=== PATIENT | female | born 1975 | race Caucasian/White ===

== ENCOUNTER 2020-03-03 20:02 | Emergency (ER) | payer OTHER, SELFPAY ==
[2020-03-03 20:40] VITALS: BP 170/83; PULSE 79; RESP 16; TEMP 36.2; O2SAT 100; BMI 49.7
--- NOTE | 2020-03-03 22:10 | ED.ABDPAIN ---
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 She states she has not followed up with her primary care provider for further evaluation. She denies any past surgical history. Related Data Previous Rx's Medication Instructions Recorded omeprazole 40 mg PO DAILY 14 Days #14 cap 03/04/20 Allergies Allergy/AdvReac Type Severity Reaction Status Date / Time amoxicillin Allergy Unknown rash Unverified 10/12/19 00:00 No Known Allergies Allergy Unverified 02/03/20 19:14 [No Known Allergies*] Review of Systems Review of Systems pertinent positives and negatives as stated in HPI 10 point review systems is otherwise negative. Physical Exam Vital Signs: Vital Signs: Vital Signs Temp Pulse Resp BP Pulse Ox 03/04/20 00:20 68 16 156/83 H 98 03/03/20 23:25 98.7 F 72 18 138/72 98 03/03/20 20:40 97.1 F 79 16 170/83 H 100 Body Mass Index 49.7 VITAL SIGNS: Reviewed. GENERAL: Well developed, well nourished, in no acute distress. HEAD: Normocephalic/atraumatic, EYES: PERRLA, EOMI intact without pain, no nystagmus/pallor/icterus noted EARS: Ext canals without abnormality, TMs non-bulging and non-erythematous NOSE: Nares patent bilateral OROPHARYNX: no oral lesions noted, posterior pharynx clear and non-erythematous without noted tonsillar enlargement/erythema/exudates NECK: Supple, no adenopathy LUNGS: Normal breath sounds. No adventitious sounds or accessory muscle use. SpO2<100%> CARDIOVASCULAR: Regular rate and rhythm without noted murmurs, no JVD or lower extremity edema. ABDOMEN: Obese, Soft, non-tender, non-distended with bowel sounds. No rigidity. No guarding. No palpable masses or hernias noted MUSCULOSKELETAL: No tenderness, deformities, or effusions noted on gross inspection. EXTREMITIES: No cyanosis, clubbing or edema. SKIN: Inspection of the skin reveals no rashes, ulcerations, jaundice, pallor, or petechiae. NEUROLOGIC: Alert and oriented x 4. Strength and sensation to light touch were grossly intact Course Course Course Narrative: this is a 44-year-old female with history and clinical presentation most suggestive of possible GERD/gastritis and less likelihood of cholecystitis or pancreatitis. Patient received a GI cocktail with good resolution of symptoms on re-evaluation and on review of all lab work and imaging there is no evidence to suggest a cholecystitis or pancreatitis. All results and findings were discussed with patient at bedside and she was discharged to home with a prescription for an ant acid and strict instructions to follow-up with her primary care provider. MDM - Abdominal Pain Lab Data Result diagrams: 03/03/20 23:42 03/04/20 00:43 Labs: Lab Results 03/03/20 03/03/20 03/03/20 Range/Units 23:42 23:42 23:42 WBC 7.8 (4.8-10.8) X10*3/uL RBC 4.22 (4.20-5.50) X10*6/uL Hgb 12.8 (12.0-16.0) g/dl Hct 38.8 (37-47) % MCV 91.9 (80-98) fL MCH 30.3 (27.0-33.0) pg MCHC 33.0 (31.0-35.0) g/dl RDW 13.4 (11.0-16.0) % Plt Count 328 (160-400) X10*3/uL MPV 10.9 (9.4-12.3) fL Immature Gran % (Auto) 0.3 (0.0-0.4) % Neut % (Auto) 50.2 (45-73) % Lymph % (Auto) 41.1 H (20-40) % [place] % (Auto) 5.7 (2-11) % Eos % (Auto) 1.8 (0-4) % Baso % (Auto) 0.9 (0-2) % Lymph # (Auto) 3.2 (1.2-4.9) X10*3/uL [place] # (Auto) 0.4 (0.1-1.2) X10*3/uL Eos # (Auto) 0.1 (0.0-0.4) X10*3/uL Baso # (Auto) 0.1 (0.0-0.2) X10*3/uL Abs Immat Gran (auto) 0.02 (0.00-0.03) X10*3/uL Absolute Neuts (auto) 3.9 (2.0-8.3) X10*3/uL Absolute Nucleated RBC 0.000 (0.0-0.012) X10*3/uL Nucleated RBC % (auto) 0.0 (0.0-0.2) /100WBC Sodium Cancelled Potassium Cancelled Chloride Cancelled Carbon Dioxide Cancelled Anion Gap Cancelled BUN Cancelled Creatinine Cancelled Estim Creat Clear Calc Cancelled Estimated GFR Cancelled Random Glucose Cancelled Calcium Cancelled Total Bilirubin Cancelled AST Cancelled ALT Cancelled Alkaline Phosphatase Cancelled Total Protein Cancelled Albumin Cancelled Urine Color YELLOW Urine Appearance CLEAR Urine pH 7.5 (5.0-8.0) Ur Specific [place] 1.020 (1.005-1.025) Urine Protein NEG (NEG-TRACE) MG/DL Urine Glucose (UA) NEG (NEG) MG/DL Urine Ketones NEG (NEG) MG/DL Urine Blood NEG (NEG) Urine Nitrite NEG (NEG) Ur Leukocyte Esterase TRACE H (NEG) Urine RBC 0 (0) /HPF Urine WBC 1-4 (0-4) /HPF Ur Squamous Epith Cells 2+ /LPF Urine Bacteria NONE /LPF Urine Test NEGATIVE (NEGATIVE) 03/04/20 Range/Units 00:43 WBC (4.8-10.8) X10*3/uL RBC (4.20-5.50) X10*6/uL Hgb (12.0-16.0) g/dl Hct (37-47) % MCV (80-98) fL MCH (27.0-33.0) pg MCHC (31.0-35.0) g/dl RDW (11.0-16.0) % Plt Count (160-400) X10*3/uL MPV (9.4-12.3) fL Immature Gran % (Auto) (0.0-0.4) % Neut % (Auto) (45-73) % Lymph % (Auto) (20-40) % [place] % (Auto) (2-11) % Eos % (Auto) (0-4) % Baso % (Auto) (0-2) % Lymph # (Auto) (1.2-4.9) X10*3/uL [place] # (Auto) (0.1-1.2) X10*3/uL Eos # (Auto) (0.0-0.4) X10*3/uL Baso # (Auto) (0.0-0.2) X10*3/uL Abs Immat Gran (auto) (0.00-0.03) X10*3/uL Absolute Neuts (auto) (2.0-8.3) X10*3/uL Absolute Nucleated RBC (0.0-0.012) X10*3/uL Nucleated RBC % (auto) (0.0-0.2) /100WBC Sodium 137 Potassium 3.9 Chloride 102 Carbon Dioxide 30 H Anion Gap 9 L BUN 11 Creatinine 0.69 Estim Creat Clear Calc 105.4 Estimated GFR > 60 Random Glucose 100 Calcium 8.7 Total Bilirubin 0.4 AST 10 ALT 8 Alkaline Phosphatase 82 Total Protein 6.6 Albumin 4.0 Urine Color Urine Appearance Urine pH (5.0-8.0) Ur Specific [place] (1.005-1.025) Urine Protein (NEG-TRACE) MG/DL Urine Glucose (UA) (NEG) MG/DL Urine Ketones (NEG) MG/DL Urine Blood (NEG) Urine Nitrite (NEG) Ur Leukocyte Esterase (NEG) Urine RBC (0) /HPF Urine WBC (0-4) /HPF Ur Squamous Epith Cells /LPF Urine Bacteria /LPF Urine Test (NEGATIVE) ECG Data Attestation: I personally reviewed and interpreted this ECG as follows: Prior ECG tracings: available for review (07/01/2018) Interpretation: NSR, HR-75, no evidence of ischemia, MS/QRS/QTc within normal limits Discharge Plan Discharge Clinical Impression: Gastritis Qualifiers: Gastritis type: unspecified gastritis Chronicity: chronic Gastritis bleeding: without bleeding Qualified Code(s): K29.50 - Unspecified chronic gastritis without bleeding Patient Disposition: Home, Self-Care Instructions: Gastritis (ED), Diet for Stomach Ulcers and Gastritis (ED) Additional Instructions: 1. reanude todos los medicamentos caseros seg?n lo prescrito. El paciente y / o la keli reconocen que comprenden los resultados (seg?n corresponda), el diagn?stico, el plan de tratamiento, la necesidad de seguimiento y los s?ntomas que deber?an impulsar el regreso a la humberto de emergencias. Prescriptions: New omeprazole 40 mg capsule,delayed release(DR/EC) 40 mg PO DAILY 14 Days Qty: 14 RF: 0 Referrals: Ree Gray MD [Primary Care Provider] - 2 days (For further management of your gastritis and evaluation for possible GERD) Interventions: ED Discharge Assessment Last Done: 03/04/20 01:30 Print Language: [place] [facility] Past Medical History Source: nursing notes reviewed Medical History Hearing loss Social History Social History Alcohol intake: never Smoking Status: Never smoker Use of substances other than those prescribed or required for medical reasons: No Advance Directives: No Advance Directives Information Provided: Yes
--- NOTE | 2020-03-03 22:11 | ECG_ITS ---
Test Reason : ABDOMINAL PAIN Blood Pressure : / mmHG Vent. Rate : 075 BPM Atrial Rate : 075 BPM P-R Int : 144 ms QRS Dur : 080 ms QT Int : 394 ms P-R-T Axes : 031 017 012 degrees QTc Int : 439 ms Normal sinus rhythm Normal ECG When compared with ECG of 01-JUL-2018 09:01, No significant change was found Referred By: Elizabeth Lomeli Electronically Signed By:DA LYNNE MD
--- NOTE | 2020-03-03 22:11 | XR_ITS ---
EXAMINATION: XR CHEST CLINICAL INFORMATION: Cough COMPARISON: 09/30/2019 TECHNIQUE: 2 views of the chest were obtained. FINDINGS: Hazy opacity in the posterior costophrenic sulcus on the lateral view is likely atelectasis. No focal consolidation or mass. Normal pulmonary vascularity. No pleural effusion or pneumothorax. Normal heart size. Degenerative changes of the thoracic spine. IMPRESSION: Atelectasis. No acute pulmonary disease.
--- NOTE | 2020-03-03 22:38 | US_ITS ---
EXAMINATION: US ABDOMEN LIMITED CLINICAL INFORMATION: Abdominal pain. COMPARISON: CT scan abdomen pelvis 07/01/2018 TECHNIQUE: Real-time imaging of the right upper quadrant abdominal viscera. Color Doppler exam used. FINDINGS: PANCREAS: Normal. LIVER: Normal. The liver is normal in size. The liver contour is normal. Parenchymal echogenicity is normal. No focal hepatic lesion. There is no intrahepatic biliary duct dilatation seen. GALLBLADDER: Gallstones fill the gallbladder causing strong posterior acoustic shadowing. No gallbladder wall thickening or pericholecystic fluid COMMON BILE DUCT: Normal in caliber measuring 0.3 cm in diameter. RIGHT KIDNEY: Normal. No hydronephrosis. No renal calculi or focal parenchymal lesions. The kidney measures 11.0 cm in maximum dimension. FREE FLUID: None. IMPRESSION: Cholelithiasis. No acute change of gallbladder wall. No bile duct dilatation.
[2020-03-03 23:25] VITALS: BP 138/72; PULSE 72; RESP 18; TEMP 37.1; O2SAT 98
[2020-03-03] MEDS: Acetaminophen 325 MG TABLET 975 MG PO (23:45)
[2020-03-03] MEDS: Magnesium Hydrox/Alum Hydrox 30 ML ORAL.SUSP PO (23:46)
[2020-03-03] MEDS: Lidocaine HCl Viscous 2 % 15 ML SOLUTION 10 ML MUCOUS MEM (23:46)
[2020-03-03 23:49] LABS: MANUAL DIFF FLAG NO
[2020-03-03 23:50] LABS: Basophils Absolute Auto 0.1 X10*3/uL (0.0-0.2); Basophils Percent Auto 0.9 % (0-2); Eosinophils Absolute Auto 0.1 X10*3/uL (0.0-0.4); Eosinophils Percent Auto 1.8 % (0-4); Hematocrit 38.8 % (37-47); Hemoglobin 12.8 g/dl (12.0-16.0); Imm Gran Abs Auto 0.02 X10*3/uL (0.00-0.03); Imm Gran Pct Auto 0.3 % (0.0-0.4); Lymphocytes Absolute Auto 3.2 X10*3/uL (1.2-4.9); Lymphocytes Percent Auto 41.1 % (20-40); Mean Corpuscular Hemoglobin 30.3 pg (27.0-33.0); Mean Corpuscular Volume 91.9 fL (80-98); Mean Platelet Volume 10.9 fL (9.4-12.3); Monocytes Absolute Auto 0.4 X10*3/uL (0.1-1.2); Monocytes Percent Auto 5.7 % (2-11); Neutrophils Absolute Auto 3.9 X10*3/uL (2.0-8.3); Neutrophils Percent Auto 50.2 % (45-73); Platelet Count 328 X10*3/uL (160-400); Red Blood Count 4.22 X10*6/uL (4.20-5.50); Red Cell Distribution Width 13.4 % (11.0-16.0); White Blood Count 7.8 X10*3/uL (4.8-10.8)
[2020-03-03 23:58] LABS: Glucose Urine UA NEG (NEG); Leukocyte Esterase Urine TRACE (NEG); Nitrite Urine NEG (NEG); PH 7.5 (5.0-8.0); Urine Blood NEG (NEG); Urine Ketones NEG (NEG); Urine Protein NEG (NEG-TRACE)
[2020-03-04 00:02] LABS: Appearance Urine CLEAR; Color Urine YELLOW
[2020-03-04 00:09] LABS: UPreg QC Valid YES; Urine Pregnancy NEGATIVE (NEGATIVE)
--- NOTE | 2020-03-04 00:16 | PC.NURSE ---
lab called and bed 17 needs to have the chem redrawn
[2020-03-04 00:20] VITALS: BP 156/83; PULSE 68; RESP 16; O2SAT 98
[2020-03-04 00:21] LABS: RBC Urine 0 /HPF (0); Squamous Epithelial Cell Urine 2+ /LPF
[2020-03-04 01:29] LABS: Alanine Aminotransferase 8 U/L (0-31); Alkaline Phosphatase 82 U/L (39-117); Anion Gap 9 (12-20); Aspartate Amino Transferase 10 U/L (5-31); Bilirubin Total 0.4 mg/dL (0.0-1.0); Blood Urea Nitrogen 11 mg/dL (9-16); Calcium 8.7 mg/dL (8.4-10.2); Carbon Dioxide 30 mmol/L (22-29); Chloride 102 mmol/L (96-108); Creatinine Clr Calc Pharmacy 105.4; Estimated Glomerular Filt Rate > 60; Glucose Random 100 mg/dL (60-115); Potassium 3.9 mmol/l (3.3-5.1); Sodium 137 mmol/L (135-145); Total Protein 6.6 g/dL (6.5-8.0)
--- NOTE | 2020-03-04 01:37 | PC.NURSE ---
Pt is A&O, no sob or chest pain. pt able to ambulated with a steady gait. Review discharge instructions with pt, pt verbalized understanding.
== END 2020-03-04 01:36 | disposition home or self-care (01) ==
PROVIDERS: Emergency Provider Student in an Organized Health Care Education/Training Program; PCP Internal Medicine
DX: K29.50 Unspecified chronic gastritis without bleeding (principal); R05 Cough; R10.10 Upper abdominal pain, unspecified; Z79.899 Other long term (current) drug therapy
CPT/HCPCS: 36415; 71046; 76705; 80053; 81001; 81003; 81025; 85025; 87086; 93005; 99284

== ENCOUNTER 2020-03-08 12:18 | Inpatient (IN) | payer OTHER, SELFPAY ==
[2020-03-08] VITALS (7 sets, daily range): BP systolic 125–158; BP diastolic 69–98; PULSE 78–96; RESP 16–20; TEMP 36–36.9; O2SAT 99–100; BMI 51.5
--- NOTE | 2020-03-08 12:43 | ECG_ITS ---
Test Reason : ABD PAIN Blood Pressure : / mmHG Vent. Rate : 081 BPM Atrial Rate : 081 BPM P-R Int : 130 ms QRS Dur : 086 ms QT Int : 406 ms P-R-T Axes : 034 021 013 degrees QTc Int : 471 ms Normal sinus rhythm Normal ECG When compared with ECG of 03-MAR-2020 22:48, No significant change was found Referred By: Cy Pérez Electronically Signed By:DA LYNNE MD
--- NOTE | 2020-03-08 13:11 | ED.ABDPAIN ---
HPI - Abdominal Pain General Chief Complaint: Abdominal Pain Stated Complaint: LQ ABD PAIN,SEEN FOR SAME RECENTLY Time Seen by Provider: 03/08/20 12:41 Source: patient Mode of arrival: EMS Limitations: language barrier History of Present Illness HPI narrative: Patient presents to ED for epigastric pain radiating to the back. Patient states pain occurred an hour ago. Patient states history of gallstones are least 1 year and has not been removed. Patient states slight nausea and vomiting. Patient states no fever, chills, chest pain, shortness of breath. Patient denies any dysuria, hematuria, flank pain, vaginal bleeding, or discharge MD elicited complaint: abdominal pain Related Data Previous Rx's Medication Instructions Recorded omeprazole 40 mg PO DAILY 14 Days #14 cap 03/04/20 Allergies Allergy/AdvReac Type Severity Reaction Status Date / Time amoxicillin Allergy Unknown rash Verified 03/08/20 12:30 No Known Allergies Allergy Verified 03/08/20 12:30 [No Known Allergies*] Review of Systems Review of Systems patient denies any chest pain, shortness of breath, coughing, swelling of lower extremities, calf pain, fever, chills, dysuria, hematuria, flank pain, diarrhea, swelling of extremities, headache, dizziness, neck stiffness, or weakness. Patient denies any constipation. Yes all other systems are reviewed and are negative Physical Exam Vital Signs: Vital Signs: Vital Signs Temp Pulse Resp BP Pulse Ox 03/08/20 16:04 98.0 F 84 18 125/71 99 03/08/20 14:10 98.1 F 79 16 140/69 H 03/08/20 12:30 98.4 F 96 18 152/71 H 99 Body Mass Index 51.5 Const: General: cooperative, healthy appearing, comfortable, no acute distress and well developed Orientation/consciousness: oriented to person, oriented to place, oriented to time and patient oriented x3 HENMT: Head: Yes normal to inspection and Yes No palpable skull fracture present Eyes: General: appearance normal, both eyes and all related structures Neck: Neck: Yes normal visual inspection, Yes full ROM, Yes no lymphadenopathy, Yes no meningeal signs, No lymphadenopathy, No positive Brudzinski's sign and No positive Kernig's sign Chest: Chest palpation & inspection: normal inspection of the chest and normal palpation of entire chest wall Resp: Effort & Inspection: normal respiratory effort, able to speak in complete sentences, no audible wheezes and no cough Auscultation: clear to auscultation bilaterally, no crackles, no rales, no rhonchi and no wheezes Cardio: Jugular venous distension: no JVD Heart sounds: S1 normal heart sound present and S2 normal heart sound present GI: Inspection: Yes normal to inspection, No abdominal wall ecchymosis, No Abdominal wall edema and No distended Palpation (GI): Soft to palpation, Tenderness to palpation present (GI) in the epigastrum, in the RUQ and Jane's sign positive, no guarding and not rigid : General: No CVA tenderness and Yes no CVA tenderness Back/Spine/Pelvis: Back: no CVA tenderness, No CVA tenderness and No back tenderness Skin: General skin exam: no rashes or lesions noted Neuro: General: oriented to person, oriented to place, oriented to time, patient oriented x3, gait normal, no meningeal signs and CN's II-XI intact bilaterally Cranial nerves: Yes CN's II-XII intact bilaterally Extrem: General: Yes normal to inspection and Yes full ROM Course Course Course Narrative: patient will have basic labs including cardiac and EKG. Patient will be given GI cocktail. Patient most likely will need imaging to rule out cholecystitis. Patient ordered fluids. Reevaluation(s) Reevaluation #1: patient was re-evaluated and states pain improved approved from 10 to a 2. Patient no longer has any abdominal tenderness or Jane sign. Patient will be sent for repeat ultrasound Time: 15:12 Reevaluation #2: Patient's ultrasound came back and shows increased size of common bowel duct and now with wall thickness. May be early cholecystitis. Spoke with Dr. Raymond of surgery who will evaluate patient at bedside. Most likely admit. MDM - Abdominal Pain Lab Data Result diagrams: 03/08/20 14:39 03/08/20 14:39 Labs: Lab Results 03/08/20 03/08/20 03/08/20 Range/Units 14:20 14:39 14:39 WBC 11.8 H (4.8-10.8) X10*3/uL RBC 4.45 (4.20-5.50) X10*6/uL Hgb 13.3 (12.0-16.0) g/dl Hct 40.7 (37-47) % MCV 91.5 (80-98) fL MCH 29.9 (27.0-33.0) pg MCHC 32.7 (31.0-35.0) g/dl RDW 13.2 (11.0-16.0) % Plt Count 334 (160-400) X10*3/uL MPV 10.9 (9.4-12.3) fL Immature Gran % (Auto) 0.4 (0.0-0.4) % Neut % (Auto) 79.7 H (45-73) % Lymph % (Auto) 13.7 L (20-40) % [place] % (Auto) 5.6 (2-11) % Eos % (Auto) 0.2 (0-4) % Baso % (Auto) 0.4 (0-2) % Lymph # (Auto) 1.6 (1.2-4.9) X10*3/uL [place] # (Auto) 0.7 (0.1-1.2) X10*3/uL Eos # (Auto) 0.0 (0.0-0.4) X10*3/uL Baso # (Auto) 0.1 (0.0-0.2) X10*3/uL Abs Immat Gran (auto) 0.05 H (0.00-0.03) X10*3/uL Absolute Neuts (auto) 9.4 H (2.0-8.3) X10*3/uL Absolute Nucleated RBC 0.000 (0.0-0.012) X10*3/uL Nucleated RBC % (auto) 0.0 (0.0-0.2) /100WBC PT 11.9 (10.8-13.0) SEC INR 1.0 (0.9-1.1) APTT 34.2 (24.1-38.0) SEC Sodium (135-145) mmol/L Potassium (3.3-5.1) mmol/l Chloride (96-108) mmol/L Carbon Dioxide (22-29) mmol/L Anion Gap (12-20) BUN (9-16) mg/dL Creatinine (0.5-1.4) mg/dL Estim Creat Clear Calc Estimated GFR Random Glucose (60-115) mg/dL Calcium (8.4-10.2) mg/dL Total Bilirubin (0.0-1.0) mg/dL Direct Bilirubin (0.0-0.5) mg/dL AST (5-31) U/L ALT (0-31) U/L Alkaline Phosphatase (39-117) U/L Troponin I High Sens (<3.5-17.0) ng/L Total Protein (6.5-8.0) g/dL Albumin (3.5-5.0) g/dL Lipase (8-78) U/L Beta HCG, Quant mIU/mL Urine Color YELLOW Urine Appearance CLEAR Urine pH 8.5 H (5.0-8.0) Ur Specific [place] 1.020 (1.005-1.025) Urine Protein NEG (NEG-TRACE) MG/DL Urine Glucose (UA) NEG (NEG) MG/DL Urine Ketones NEG (NEG) MG/DL Urine Blood NEG (NEG) Urine Nitrite NEG (NEG) Ur Leukocyte Esterase TRACE H (NEG) Urine RBC 0-2 (0) /HPF Urine WBC 1-4 (0-4) /HPF Ur Squamous Epith Cells 1+ /LPF Ur Renal Epithelial Cell 1+ /LPF Urine Bacteria NONE /LPF Urine Mucus 1+ /LPF 03/08/20 03/08/20 Range/Units 14:39 14:39 WBC (4.8-10.8) X10*3/uL RBC (4.20-5.50) X10*6/uL Hgb (12.0-16.0) g/dl Hct (37-47) % MCV (80-98) fL MCH (27.0-33.0) pg MCHC (31.0-35.0) g/dl RDW (11.0-16.0) % Plt Count (160-400) X10*3/uL MPV (9.4-12.3) fL Immature Gran % (Auto) (0.0-0.4) % Neut % (Auto) (45-73) % Lymph % (Auto) (20-40) % [place] % (Auto) (2-11) % Eos % (Auto) (0-4) % Baso % (Auto) (0-2) % Lymph # (Auto) (1.2-4.9) X10*3/uL [place] # (Auto) (0.1-1.2) X10*3/uL Eos # (Auto) (0.0-0.4) X10*3/uL Baso # (Auto) (0.0-0.2) X10*3/uL Abs Immat Gran (auto) (0.00-0.03) X10*3/uL Absolute Neuts (auto) (2.0-8.3) X10*3/uL Absolute Nucleated RBC (0.0-0.012) X10*3/uL Nucleated RBC % (auto) (0.0-0.2) /100WBC PT (10.8-13.0) SEC INR (0.9-1.1) APTT (24.1-38.0) SEC Sodium 137 (135-145) mmol/L Potassium 3.9 (3.3-5.1) mmol/l Chloride 104 (96-108) mmol/L Carbon Dioxide 24 (22-29) mmol/L Anion Gap 13 (12-20) BUN 8 L (9-16) mg/dL Creatinine 0.63 (0.5-1.4) mg/dL Estim Creat Clear Calc 118.1 Estimated GFR > 60 Random Glucose 90 (60-115) mg/dL Calcium 8.5 (8.4-10.2) mg/dL Total Bilirubin 0.8 (0.0-1.0) mg/dL Direct Bilirubin 0.5 (0.0-0.5) mg/dL AST 190 H (5-31) U/L ALT 103 H (0-31) U/L Alkaline Phosphatase 131 H D (39-117) U/L Troponin I High Sens < 3.5 (<3.5-17.0) ng/L Total Protein 6.5 (6.5-8.0) g/dL Albumin 3.9 (3.5-5.0) g/dL Lipase 6 L (8-78) U/L Beta HCG, Quant < 2 mIU/mL Urine Color Urine Appearance Urine pH (5.0-8.0) Ur Specific [place] (1.005-1.025) Urine Protein (NEG-TRACE) MG/DL Urine Glucose (UA) (NEG) MG/DL Urine Ketones (NEG) MG/DL Urine Blood (NEG) Urine Nitrite (NEG) Ur Leukocyte Esterase (NEG) Urine RBC (0) /HPF Urine WBC (0-4) /HPF Ur Squamous Epith Cells /LPF Ur Renal Epithelial Cell /LPF Urine Bacteria /LPF Urine Mucus /LPF ECG Data Interpretation: Normal sinus rhythm, ventricular rate 81, MI interval 130. Negative STEMI Discharge Plan Discharge Clinical Impression: Cholecystitis, acute with cholelithiasis Patient Disposition: Admitted As Inpatient Print Language: [place] COUNT INCLUDES THE [facility] Past Medical History Medical History Hearing loss Social History Social History Alcohol intake: never Smoking Status: Never smoker Advance Directives: Yes Advance Directives Information Provided: Yes Advance Directives on File: No
[2020-03-08] MEDS: Lidocaine HCl Viscous 2 % 15 ML SOLUTION MUCOUS MEM (14:13)
[2020-03-08] MEDS: Magnesium Hydrox/Alum Hydrox 30 ML ORAL.SUSP PO (14:14)
[2020-03-08] MEDS: PHENobarb/Hyoscy/Atropine/Scop 10 ML ELIXIR PO (14:14)
[2020-03-08] MEDS: Famotidine/PF 20 MG/2 ML VIAL IVPUSH (14:14)
--- NOTE | 2020-03-08 14:27 | US_ITS ---
EXAMINATION: US ABDOMEN LIMITED CLINICAL INFORMATION: Worsening abdominal pain. COMPARISON: Ultrasound 03/03/2020 exam TECHNIQUE: Real-time imaging of the right upper quadrant abdominal viscera. FINDINGS: The gallbladder is distended with echogenic stones and [place] sign. The gallbladder wall measures 0.3 cm. There is mild tenderness in the gallbladder by ultrasound probe. No pericholecystic fluid collection seen. The CBD measures 0.9 cm and is dilated. Previously it measured 0.3 cm on 03/03/2020 ultrasound exam. IMPRESSION: Cholelithiasis with wall thickening and wall echo shadow sign (ISR[place]). There is mild tenderness in the area of gallbladder.
[2020-03-08 14:38] LABS: Glucose Urine UA NEG (NEG); Leukocyte Esterase Urine TRACE (NEG); Nitrite Urine NEG (NEG); PH 8.5 (5.0-8.0); Urine Blood NEG (NEG); Urine Ketones NEG (NEG); Urine Protein NEG (NEG-TRACE)
[2020-03-08 14:41] LABS: Appearance Urine CLEAR; Color Urine YELLOW
[2020-03-08 14:45] LABS: MANUAL DIFF FLAG NO
[2020-03-08 14:53] LABS: Mucus Urine 1+ /LPF; RBC Urine 0-2 /HPF (0); Renal Epithelial Cells Urine 1+ /LPF; Squamous Epithelial Cell Urine 1+ /LPF
[2020-03-08 14:54] LABS: Basophils Absolute Auto 0.1 X10*3/uL (0.0-0.2); Basophils Percent Auto 0.4 % (0-2); Eosinophils Percent Auto 0.2 % (0-4); Hematocrit 40.7 % (37-47); Hemoglobin 13.3 g/dl (12.0-16.0); Imm Gran Abs Auto 0.05 X10*3/uL (0.00-0.03); Imm Gran Pct Auto 0.4 % (0.0-0.4); Lymphocytes Absolute Auto 1.6 X10*3/uL (1.2-4.9); Lymphocytes Percent Auto 13.7 % (20-40); Mean Corpuscular HGB Conc 32.7 g/dl (31.0-35.0); Mean Corpuscular Hemoglobin 29.9 pg (27.0-33.0); Mean Corpuscular Volume 91.5 fL (80-98); Mean Platelet Volume 10.9 fL (9.4-12.3); Monocytes Absolute Auto 0.7 X10*3/uL (0.1-1.2); Monocytes Percent Auto 5.6 % (2-11); Neutrophils Absolute Auto 9.4 X10*3/uL (2.0-8.3); Neutrophils Percent Auto 79.7 % (45-73); Platelet Count 334 X10*3/uL (160-400); Red Blood Count 4.45 X10*6/uL (4.20-5.50); Red Cell Distribution Width 13.2 % (11.0-16.0); White Blood Count 11.8 X10*3/uL (4.8-10.8)
[2020-03-08 15:01] LABS: Prothrombin Time 11.9 SEC (10.8-13.0)
[2020-03-08 15:03] LABS: Partial Thromboplastin Time 34.2 SEC (24.1-38.0)
[2020-03-08 15:24] LABS: Troponin-I High Sensitivity < 3.5 ng/L (<3.5-17.0)
[2020-03-08 15:29] LABS: HCG Quantitative < 2 mIU/mL
[2020-03-08 15:41] LABS: Alanine Aminotransferase 103 U/L (0-31); Albumin Level 3.9 g/dL (3.5-5.0); Alkaline Phosphatase 131 U/L (39-117); Anion Gap 13 (12-20); Aspartate Amino Transferase 190 U/L (5-31); Bilirubin Direct 0.5 mg/dL (0.0-0.5); Bilirubin Total 0.8 mg/dL (0.0-1.0); Blood Urea Nitrogen 8 mg/dL (9-16); Calcium 8.5 mg/dL (8.4-10.2); Carbon Dioxide 24 mmol/L (22-29); Chloride 104 mmol/L (96-108); Creatinine Clr Calc Pharmacy 118.1; Estimated Glomerular Filt Rate > 60; Glucose Random 90 mg/dL (60-115); Lipase 6 U/L (8-78); Potassium 3.9 mmol/l (3.3-5.1); Sodium 137 mmol/L (135-145); Total Protein 6.5 g/dL (6.5-8.0)
--- NOTE | 2020-03-08 17:08 | P.HPGS_ITS ---
History of Present Illness History of Present Illness Chief complaint: acute cholecystitis, cholelithiasis Narrative: Yasemin Zapata is a 44 year old female presenting with complaints of abdominal pain in the upper abdomen for several days. She was seen previously in the emergency department determined to have gallstones and has had several episodes of increased pain over the past week. The pain seems to be associated with nausea and vomiting. She denies fever, chills, diarrhea, or constipation. She presented to the emergency department today because of increased abdominal pain. Workup revealed elevated liver function test and WBC. Ultrasound of the abdomen revealed a thickened gallbladder wall with enlarged common bile duct not seen on the previous ultrasound. [facility] Review of Systems Constitutional: Constitutional: Denies chills, Denies fever(s), Denies headache(s) and Denies poor appetite ENT: Denies dizziness and Denies headache(s) Cardiovascular: Cardiovascular: Denies chest pain, Denies rapid heart rate, Denies palpitations and Denies slow heart rate Respiratory: Respiratory: Denies chest congestion, Denies cough, Denies pain on inspiration and Denies wheezing Gastrointestinal: Gastrointestinal: Reports abdominal pain, Reports bloating, Denies change in stool character, Denies constipation, Denies diarrhea, Reports nausea, Reports vomiting and Denies hematemesis Musculoskeletal: Musculoskeletal: Denies back pain, Denies arthralgias, Denies joint swelling and Denies numbness Integumentary/Breasts: Skin/Breast: Denies change in pigmentation, Denies erythema and Denies rash Neurologic: Denies confusion, Denies dizziness, Denies headache(s) and Denies numbness Psychiatric: Psychiatric: Denies anxiety, Denies confusion and Denies depression Endocrine: Endocrine: Denies palpitations Hematologic/Lymphatic: Hematologic/Lymphatic: Denies easy bleeding, Denies easy bruising and Denies lymphadenopathy Allergic/Immunologic: Allergic/Immunologic: Denies wheezing PMFSH Past Medical History Medical History Hearing loss Social History Social History Household Members: Spouse Housing: Condominium Do you presently have visiting nurse or other home services: No Alcohol intake: never Smoking Status: Never smoker Use of substances other than those prescribed or required for medical reasons: No Currently Displaying Signs/Symptoms of Drug Intoxication Withdrawal: No Have you been hit, kicked, punched, or otherwise hurt by someone within the past year? If so, by whom?: No Do you feel safe in your current relationship?: Yes Is there a partner from a previous relationship who is making you feel unsafe now?: No Are you made to feel afraid or neglected: No Advance Directives: No Advance Directives Information Provided: No Advance Directives on File: No Do you have thoughts of harming others: None Do you have a plan to hurt others: No Plan Recently lost weight without trying: No service: No Current occupational status: unemployed Meds Allergies Allergy/AdvReac Type Severity Reaction Status Date / Time amoxicillin Allergy Unknown rash Verified 03/08/20 12:30 No Known Allergies Allergy Verified 03/08/20 12:30 [No Known Allergies*] Home Medications Medication Instructions Recorded Confirmed Type hydroxyzine pamoate 25 mg PO BID PRN 03/08/20 03/08/20 History omeprazole 40 mg PO DAILY@0630 03/08/20 03/08/20 History sertraline 25 mg PO DAILY 03/08/20 03/08/20 History Physical Exam Vital Signs: Vital Signs: Vital Signs Temp Pulse Resp BP Pulse Ox 03/08/20 16:04 98.0 F 84 18 125/71 99 03/08/20 14:10 98.1 F 79 16 140/69 H 03/08/20 12:30 98.4 F 96 18 152/71 H 99 Body Mass Index 51.5 Const: General: No confusion Nutritional Appearance: well nourished Orientation/consciousness: No confusion Eyes: Sclerae: sclerae normal EOM: EOMs intact bilaterally Neck: Neck: Yes normal visual inspection Resp: Effort & Inspection: normal respiratory effort, no cough and no respiratory distress Cardio: Jugular venous distension: no JVD Rate: regular rate Rhythm: regular rhythm GI: Inspection: Yes normal to inspection and Yes obesity Palpation (GI): Soft to palpation, Tenderness to palpation present (GI) in the epigastrum, in the LLQ, in the RLQ and Jane's sign positive, no guarding, not rigid and no hepatosplenomegaly Percussion: Yes normal to percussion Auscultation: normal bowel sounds Abdomen image: 1. Site of tenderness Skin: General skin exam: dry skin Rashes: no rashes Neuro: General: No confusion Extrem: General: Yes no clubbing, cyanosis or edema Right upper extremity: normal capillary refill Left upper extremity: full ROM Results Results Labs: Short CBC 03/08/20 Range/Units 14:39 WBC 11.8 H (4.8-10.8) X10*3/uL Hgb 13.3 (12.0-16.0) g/dl Hct 40.7 (37-47) % Plt Count 334 (160-400) X10*3/uL BMP 03/08/20 14:39 Sodium 137 Potassium 3.9 Chloride 104 Carbon Dioxide 24 BUN 8 L Creatinine 0.63 Calcium 8.5 Liver Function 03/08/20 Range/Units 14:39 Total Bilirubin 0.8 (0.0-1.0) mg/dL Direct Bilirubin 0.5 (0.0-0.5) mg/dL AST 190 H (5-31) U/L ALT 103 H (0-31) U/L Alkaline Phosphatase 131 H D (39-117) U/L Albumin 3.9 (3.5-5.0) g/dL Urine 03/08/20 Range/Units 14:20 Urine Color YELLOW Urine Appearance CLEAR Urine pH 8.5 H (5.0-8.0) Ur Specific Jenkins 1.020 (1.005-1.025) Urine Protein NEG (NEG-TRACE) MG/DL Urine Glucose (UA) NEG (NEG) MG/DL Assessment and Plan (1) Cholecystitis, acute with cholelithiasis: Status: Acute Patient presents with persistent right upper quadrant abdominal pain as well as pain in the epigastrium and left upper quadrant associated with nausea and vomiting. Workup today reveals elevated liver function tests and elevated WBC. Ultrasound of the abdomen shows changes in the gallbladder consistent with acute cholecystitis suggests thickening of the gallbladder wall and dilation of the common bile duct. Plan: IV fluids, NPO, IV antibiotics, repeat liver function tests in the morning. If still elevated, will consult GI and possibly order MRCP.
--- NOTE | 2020-03-08 19:05 | PC.NURSE ---
S[facility] CALLED FOR REPORT, NURSES ARE TAKING REPORT AT THIS TIME.
[2020-03-08] MEDS: Dextrose 5 % and Lactated Ring 1,000 ML 125 ML IVCONT (22:01)
[2020-03-08] MEDS: ondansetron HCL 4 MG/2 ML VIAL IVPUSH (22:01)
[2020-03-08] MEDS: Morphine Sulfate 4 MG/ML CARTRIDGE IVPUSH (22:01)
[2020-03-09] VITALS (7 sets, daily range): BP systolic 120–149; BP diastolic 57–79; PULSE 62–74; RESP 16–18; TEMP 36.1–36.6; O2SAT 96–99
[2020-03-09 05:48] LABS: Hematocrit 37.4 % (37-47); Hemoglobin 12.1 g/dl (12.0-16.0); Mean Corpuscular HGB Conc 32.4 g/dl (31.0-35.0); Mean Corpuscular Volume 92.6 fL (80-98); Mean Platelet Volume 10.8 fL (9.4-12.3); Platelet Count 289 X10*3/uL (160-400); Red Blood Count 4.04 X10*6/uL (4.20-5.50); Red Cell Distribution Width 13.5 % (11.0-16.0); White Blood Count 5.1 X10*3/uL (4.8-10.8)
[2020-03-09] MEDS: Dextrose 5 % and Lactated Ring 1,000 ML 125 ML IVCONT ×2 (05:56→22:40)
[2020-03-09 06:19] LABS: Alanine Aminotransferase 759 U/L (0-31); Albumin Level 3.5 g/dL (3.5-5.0); Alkaline Phosphatase 207 U/L (39-117); Anion Gap 11 (12-20); Aspartate Amino Transferase 848 U/L (5-31); Bilirubin Direct 0.4 mg/dL (0.0-0.5); Bilirubin Total 0.8 mg/dL (0.0-1.0); Blood Urea Nitrogen 6 mg/dL (9-16); Calcium 8.3 mg/dL (8.4-10.2); Carbon Dioxide 27 mmol/L (22-29); Chloride 104 mmol/L (96-108); Creatinine Clr Calc Pharmacy 101.9; Estimated Glomerular Filt Rate > 60; Glucose Random 109 mg/dL (60-115); Potassium 3.9 mmol/l (3.3-5.1); Sodium 138 mmol/L (135-145); Total Protein 5.9 g/dL (6.5-8.0)
--- NOTE | 2020-03-09 10:09 | MHC.CM.PN ---
NURSE PLUSH BRUSHER NOTE ELECTRONIC MEDICAL RECORD REVIEWED ALONG WITH CASE DISCUSSED WITH STAFF BEN , ,MET WITH PATIENT WITH [facility] INTERPERET[facility], PATIENT WAS ALERT AND ORIENTATED , SHE LIVES WITH HER SHE HAS NO CVNA NO HEAD BUTLER MNO DME SERVICES IN THE HOME SHE REPORTAS THAT SHE DOES HAVE DIFFICULTY GOING UP AND DOWN THE STAIRS BUT HER HUABSN HELPS HER, . SHE CONFIRMED THAT HER PCP IS DR GOVEA, SHE INFORMED [facility] THAT SHE IS FOLLWED BY [facility] FOR MENTAL HEALTH COUNSELING FOR ANXIETY AND SEES A PSYCHIATRIST AND THEARPIST ,. SHE IS AWAITING TO SEE THE SURGEON AND SEE IF SHE WILL NEED TO HAVE SURGERY DISCHARGE PLAN ANTICIPATE DISCHARGE HOME NO SERVICES SE[employer] RESUMTPION OF HER MENTAL HEALTH COUNSELING. TRANSPORTATION FAMILY PCP DR CR KHAN PATIENT TO CALL FOR POST HOSPITAL DISCHARGE
[2020-03-09] MEDS: Morphine Sulfate 4 MG/ML CARTRIDGE IVPUSH (10:44)
--- NOTE | 2020-03-09 11:31 | PM.PNGS ---
Subjective Subjective Interval history: Seen with javascript developer. Feels about the same today. Pain is persistent. Feels hungry. <Latha Smith PA-C Last Filed: 03/09/20 11:37> Physical Exam Vital Signs: Vital Signs: Vital Signs Temp Pulse Resp BP Pulse Ox 03/09/20 07:42 97.3 F 66 18 120/57 L 97 03/09/20 03:42 97.5 F 62 17 136/79 98 03/09/20 00:00 97.8 F 73 16 129/63 96 03/08/20 22:01 20 03/08/20 21:17 152/71 H 03/08/20 21:16 96.8 F 78 19 100 03/08/20 19:14 98.3 F 80 16 135/78 03/08/20 16:04 98.0 F 84 18 125/71 99 03/08/20 14:10 98.1 F 79 16 140/69 H 03/08/20 12:30 98.4 F 96 18 152/71 H 99 Body Mass Index 51.5 <KVNG Tello Last Filed: 03/09/20 11:37> Const: General: comfortable, no acute distress, well developed and alert <Latha Smith PA-C Last Filed: 03/09/20 11:37> Orientation/consciousness: patient oriented x3 <Latha Smith PA-C Last Filed: 03/09/20 11:37> Eyes: Sclerae: sclerae normal <Latha Smith PA-C Last Filed: 03/09/20 11:37> Resp: Effort & Inspection: normal respiratory effort <Latha Smith PA-C Last Filed: 03/09/20 11:37> Cardio: Rate: regular rate <Latha Smith PA-C Last Filed: 03/09/20 11:37> GI: Inspection: No distended and Yes obesity <Latha Smith PA-C Last Filed: 03/09/20 11:37> Palpation (GI): Soft to palpation, Tenderness to palpation present (GI) in the RUQ, no guarding, not rigid and No Rebound tenderness present <Latha Smith PA-C - Last Filed: 03/09/20 11:37> Auscultation: normal bowel sounds <Latha Smith PREMA - Last Filed: 03/09/20 11:37> Skin: General skin exam: no rashes or lesions noted and other (normal color) <Latha Smith PREMA - Last Filed: 03/09/20 11:37> Neuro: General: patient oriented x3 <Latha FaustdeauLISSEvert - Last Filed: 03/09/20 11:37> Extrem: General: Yes no clubbing, cyanosis or edema <Latha FaustLISS washburnEvert - Last Filed: 03/09/20 11:37> Progress Note: A&P Assessment and plan (1) Transaminitis: Status: Acute <Latha Smith PREMA - Last Filed: 03/09/20 11:37> Assessment and Plan: LFTs worsened today- bilirubin remains normal. Will obtain GI consult for ?MRCP or further work up prior to CCY. <Latha Faustwu PREMA - Last Filed: 03/09/20 11:37> (2) Cholecystitis, acute with cholelithiasis: Status: Acute <Latha Faustdeau PREMA - Last Filed: 03/09/20 11:37> Assessment and Plan: Continues with persistent RUQ pain and tenderness. WBC normalized. Continue IV cefotan. GI consult for possible MRCP prior to CCY for transaminitis, dilated CBD. Cont NPO status, IVF for now. <Latha Lealcapri LISSEvert - Last Filed: 03/09/20 11:37> Continued abdominal pain in RUQ, and improved WBC but increased transaminases. Agree with the above assessment and plan. MRCP with filling defect. Probable ERCP followed by Lap or possible open cholecystectomy. <Fadi Raymond MD - Last Filed: 03/09/20 15:56> Fall Risk Details Current Medications: Current Medications Generic Name Dose Route Start Last Admin Trade Name Freq PRN Reason Stop Dose Admin Acetaminophen 650 mg 03/08/20 16:57 Acetaminophen 325 Mg Tablet PO QID PRN headache, temp > 101 Dextrose/Lactated Ringer's 1,000 mls @ 125 mls/hr 03/08/20 17:00 03/09/20 05:57 D5lr IVCONT 0 mls/hr .Q8H CATHERINE Infusion Cefotetan Disodium 2 gm/ 50 mls @ 100 mls/hr 03/08/20 22:00 03/09/20 11:30 Dextrose IV Infused Q12H CATHERINE Infusion Morphine Sulfate 4 mg 03/08/20 16:57 03/09/20 10:44 Morphine Sulfate 4 Mg/Ml Cartridge IVPUSH 4 mg Q3H PRN Administration abdominal pain Ondansetron HCl 4 mg 03/08/20 16:57 03/08/20 22:01 Ondansetron Hcl 4 Mg/2 Ml Vial IVPUSH 4 mg QID PRN Administration Nausea Zolpidem Tartrate 5 mg 03/08/20 16:57 Zolpidem Tartrate 5 Mg Tablet PO BEDTIME PRN Insomnia <Latha Smith PA-C - Last Filed: 03/09/20 11:37> Time Spent With Patient Time: Total time spent is greater than 50% in coordination of care (as documented) at patient's floor/unit and/or counseling patient: <Latha Smith PA-C - Last Filed: 03/09/20 11:37> Time with patient: 15 - 24 minutes <Latha Smith PA-C - Last Filed: 03/09/20 11:37>
--- NOTE | 2020-03-09 12:09 | MR_ITS ---
EXAMINATION: MR ABDOMEN WITHOUT CONTRAST CLINICAL INFORMATION: Elevated LFTs, gallstones, interval CBD dilatation. COMPARISON: Ultrasound abdomen 03/08/2020, 03/03/2020, CT abdomen and pelvis with contrast 07/01/2018. TECHNIQUE: MR abdomen is performed without gadolinium contrast. Additional MRCP sequences performed with associated maximum intensity projection MIP images generated on the MR workstation and uploaded to PACS. FINDINGS: LUNG BASES: The visualized lung bases are unremarkable. LIVER, GALLBLADDER, AND BILIARY TREE: The liver is normal in size, smooth in contour, and normal in signal. No focal hepatic lesion is present. The gallbladder has numerous stones in the lumen. The gallbladder is normal in caliber measuring 2.6 cm in diameter. There is no gallbladder wall thickening, pericholecystic inflammatory changes, or pericholecystic fluid. There is no intrahepatic ductal dilatation. The common bile duct is normal in caliber measuring under 5 mm in diameter. The MRCP MIP images suggest 2 mm intraluminal filling defect distal CBD. There is no stricture or extrinsic compression. PANCREAS: The pancreas is unremarkable, normal in size and contour and signal. There is normal pancreatic duct. No divisum. No pancreatic ductal dilatation or retroperitoneal effusion. SPLEEN: Unremarkable. ADRENAL GLANDS: Unremarkable. KIDNEYS AND URETERS: The kidneys are normal in size and shape. No hydronephrosis. No perinephric stranding. GASTROINTESTINAL TRACT: No bowel obstruction. No ascites or fluid collection. ABDOMINAL WALL: No significant hernia is appreciated. LYMPH NODES: No lymphadenopathy. VASCULAR: Unremarkable. OSSEOUS STRUCTURES: Marrow signal normal. MR/MR MRCP IMPRESSION: 1. Numerous gallstones. No gallbladder dilatation or wall thickening or pericholecystic inflammatory changes. 2. No biliary ductal dilatation. Common duct under 5 mm. 3. Suspect punctate 2 mm calculus distal CBD on MRCP MIP images. 4. Normal pancreatic duct.
[2020-03-09] MEDS: ondansetron HCL 4 MG/2 ML VIAL IVPUSH ×2 (13:25→22:40)
--- NOTE | 2020-03-09 14:57 | CONS_ITS ---
DATE OF SERVICE: 03/09/2020 REFERRING PHYSICIAN: Fadi Raymond MD REASON FOR CONSULTATION: Elevated liver function tests, dilated common bile duct and gallstones. HISTORY OF PRESENT ILLNESS: The patient is a 44-year-old woman, who was admitted to the hospital on March 08 after presenting to the emergency room with abdominal pain. She has a history of known gallstones and had abdominal pain earlier in the week that was evaluated and she was sent home. There was recurrence of the pain in the upper abdomen with associated nausea or vomiting, and she returned to the emergency room. She had no associated fevers, chills, or diarrhea. She was evaluated in the emergency room with laboratory studies, which showed elevations of her liver function tests with an alkaline phosphatase of 131, AST 190, and ALT 103. Total bilirubin was normal. Liver function tests worsen today with transaminases in the 700 to 800 range and an alkaline phosphatase slightly higher 207. Bilirubin remained normal. Imaging was obtained with ultrasound of the abdomen yesterday, which is reviewed. This shows cholelithiasis with gallbladder wall thickening and dilated common bile duct up to 9 mm, which was changed from 3 mm on the ultrasound 5 days ago. PAST MEDICAL HISTORY: 1. Gallstones. 2. Hearing loss. CURRENT MEDICATIONS: Current medication list is reviewed in the chart. ALLERGIES: AMOXICILLIN. FAMILY HISTORY: This is reviewed with the patient and is noncontributory. SOCIAL HISTORY: She denies tobacco, alcohol, and substance abuse. REVIEW OF SYSTEMS: SKIN: No pruritus. HEENT: Negative. CARDIOPULMONARY: No shortness of breath or chest pain. GASTROINTESTINAL: As above. GENITOURINARY: Negative. NEUROPSYCHIATRIC: Negative. PHYSICAL EXAMINATION: GENERAL: Shows a pleasant female, lying in bed. VITAL SIGNS: Reviewed in electronic medical record and are stable. SKIN: Anicteric. HEENT: No scleral icterus. NECK: Without lymphadenopathy or thyromegaly. LUNGS: Clear. HEART: Regular rate and rhythm. S1, S2. No murmur. ABDOMEN: Soft without focal masses or tenderness except in the upper abdomen, where there is mild diffuse tenderness. Bowel sounds are present. No organomegaly is noted. EXTREMITIES: Without edema. LABORATORY DATA: Shows a white blood cell count of 5.1, down from 11.8 yesterday. Prothrombin time is normal. Chemistries are reviewed. IMPRESSION: Elevated liver function tests with dilated common bile duct and abdominal pain. Her presentation could be consistent with choledocholithiasis, although her transaminase elevation is somewhat unusual with a predominant hepatocellular pattern without any evidence of total bilirubin elevation. I would recommend obtaining MRI imaging to further assess her common bile duct. I discussed ERCP with her through the hospital communication center coordinator today including risks and benefits. She understands these and agrees to proceed if necessary. Thank for asking me to see her. I will follow her in the hospital with you. MD LILIANA Warren/ELISA / [phone]
--- NOTE | 2020-03-09 19:38 | PM.EVENT ---
Event Note Event Note: MRI reviewed There does appear to be a small CBD stone As discussed earlier today with Ms Betancourt Juan Alberto, ERCP planned for 03/10, based on these findings. She is aware of risks and benefits and agrees to proceed.
--- NOTE | 2020-03-09 19:42 | MHC.SHP ---
Pre-Procedural Eval Section A The patient is an INPATIENT: Yes The History & Physical has been completed within 30 days and I have reviewed it.: Yes Section B Chief Complaint: acute cholecystitis, cholelithiasis Allergies: Allergies Allergy/AdvReac Type Severity Reaction Status Date / Time amoxicillin Allergy Unknown rash Verified 03/08/20 12:30 No Known Allergies Allergy Verified 03/08/20 12:30 [No Known Allergies*] Plan Patient has been examined and remains a candidate for the planned procedure
[2020-03-10] VITALS (12 sets, daily range): BP systolic 132–150; BP diastolic 61–89; PULSE 68–92; RESP 16–20; TEMP 35.9–36.7; O2SAT 95–100
[2020-03-10] MEDS: Morphine Sulfate 4 MG/ML CARTRIDGE IVPUSH (06:29)
[2020-03-10] MEDS: Dextrose 5 % and Lactated Ring 1,000 ML 125 ML IVCONT ×2 (06:29→23:28)
[2020-03-10 06:57] LABS: Alanine Aminotransferase 496 U/L (0-31); Albumin Level 3.4 g/dL (3.5-5.0); Alkaline Phosphatase 240 U/L (39-117); Aspartate Amino Transferase 252 U/L (5-31); Bilirubin Direct 0.2 mg/dL (0.0-0.5); Bilirubin Total 0.4 mg/dL (0.0-1.0); Total Protein 5.8 g/dL (6.5-8.0)
--- NOTE | 2020-03-10 11:07 | PM.PNGS ---
Subjective Subjective Interval history: Feels a little better this morning. Pain slightly improved. <Latha Smith PA-C [employer] Last Filed: 03/10/20 11:11> Physical Exam Vital Signs: Vital Signs: Vital Signs Temp Pulse Resp BP Pulse Ox 03/10/20 08:00 97.4 F 68 18 141/79 H 99 03/10/20 03:00 96.7 F L 92 18 132/72 97 03/09/20 22:38 97 F 63 18 149/76 H 99 03/09/20 20:00 96.9 F 69 18 148/75 H 98 03/09/20 15:18 97.2 F 73 16 139/79 97 03/09/20 11:34 97.2 F 74 18 134/65 99 Body Mass Index 51.5 <Latha Smith PA-C - Last Filed: 03/10/20 11:11> Const: General: comfortable and no acute distress <Latha Smith PA-C [employer] Last Filed: 03/10/20 11:11> Orientation/consciousness: patient oriented x3 <Latha Smith PA-C [employer] Last Filed: 03/10/20 11:11> Eyes: Sclerae: sclerae normal <Latha Smith PA-C Last Filed: 03/10/20 11:11> Resp: Effort & Inspection: normal respiratory effort <Latha Smith PA-C [employer] Last Filed: 03/10/20 11:11> GI: Inspection: Yes normal to inspection and No distended <Latha Smith PA-C [employer] Last Filed: 03/10/20 11:11> Palpation (GI): Soft to palpation, Tenderness to palpation present (GI) in the RUQ, no guarding and No Rebound tenderness present <Latha Smith PA-C [employer] Last Filed: 03/10/20 11:11> Skin: General skin exam: no rashes or lesions noted <Latha Smith PA-C [employer] Last Filed: 03/10/20 11:11> Neuro: General: patient oriented x3 <Latha Smith PA-C [employer] Last Filed: 03/10/20 11:11> Extrem: General: Yes no clubbing, cyanosis or edema <Latha Smith PA-C - Last Filed: 03/10/20 11:11> Progress Note: A&P Assessment and plan (1) Cholecystitis, acute with cholelithiasis: Status: Acute <Latha Smith PA-C - Last Filed: 03/10/20 11:11> Assessment and Plan: Cont IV abx. ERCP today. Eventual lap CCY poss open. <Latha Smith PA-C - Last Filed: 03/10/20 11:11> Patient underwent ERCP today with Dr. Clark. Discussed with Dr. Clark and images reviewed. Stone removed from CBD and duct is now clear. A patent cystic duct was identified as well. Patient will need cholecystectomy, either on this admission or as outpatient. If she is reasonably comfortable over the weekend, she may be discharged to home with follow up in office to arrange lap cholecystectomy. <Fadi Raymond MD - Last Filed: 03/10/20 14:09> (2) Transaminitis: Status: Acute <Latha Smith PA-C - Last Filed: 03/10/20 11:11> Assessment and Plan: Improved this am. MRCP yesterday revealed two filling defects. Seen by GI, ERCP today. Cont to trend LFTs. <Latha Smith PA-C - Last Filed: 03/10/20 11:11> Fall Risk Details Current Medications: Current Medications Generic Name Dose Route Start Last Admin Trade Name Freq PRN Reason Stop Dose Admin Acetaminophen 650 mg 03/08/20 16:57 Acetaminophen 325 Mg Tablet PO QID PRN headache, temp > 101 Dextrose/Lactated Ringer's 1,000 mls @ 125 mls/hr 03/08/20 17:00 03/10/20 10:23 D5lr IVCONT Not Given .Q8H CATHERINE Cefotetan Disodium 2 gm/ 50 mls @ 100 mls/hr 03/08/20 22:00 03/10/20 10:22 Dextrose IV Infused Q12H CATHERINE Infusion Morphine Sulfate 4 mg 03/08/20 16:57 03/10/20 06:29 Morphine Sulfate 4 Mg/Ml Cartridge IVPUSH 4 mg Q3H PRN Administration abdominal pain Ondansetron HCl 4 mg 03/08/20 16:57 03/09/20 22:40 Ondansetron Hcl 4 Mg/2 Ml Vial IVPUSH 4 mg QID PRN Administration Nausea Zolpidem Tartrate 5 mg 03/08/20 16:57 Zolpidem Tartrate 5 Mg Tablet PO BEDTIME PRN Insomnia <Latha Smith PA-C - Last Filed: 03/10/20 11:11> Time Spent With Patient Time: Total time spent is greater than 50% in coordination of care (as documented) at patient's floor/unit and/or counseling patient: <Ltaha Smith PA-C - Last Filed: 03/10/20 11:11> Time with patient: less than 15 minutes <Latha Smith PA-C - Last Filed: 03/10/20 11:11>
--- NOTE | 2020-03-10 11:16 | PC.NURSE ---
New heplock #20 started in left hand. Pt tolerated well
--- NOTE | 2020-03-10 11:59 | P.CONAN_ITS ---
[facility] Past Medical History Medical History Hearing loss Social History Social History Household Members: Spouse Housing: Condominium Do you presently have visiting nurse or other home services: No Alcohol intake: never Smoking Status: Never smoker Use of substances other than those prescribed or required for medical reasons: No Currently Displaying Signs/Symptoms of Drug Intoxication Withdrawal: No Have you been hit, kicked, punched, or otherwise hurt by someone within the past year? If so, by whom?: No Do you feel safe in your current relationship?: Yes Is there a partner from a previous relationship who is making you feel unsafe now?: No Are you made to feel afraid or neglected: No Advance Directives: No Advance Directives Information Provided: No Advance Directives on File: No Do you have thoughts of harming others: None Do you have a plan to hurt others: No Plan Recently lost weight without trying: No service: No Current occupational status: unemployed Meds Allergies Allergy/AdvReac Type Severity Reaction Status Date / Time amoxicillin Allergy Unknown rash Verified 03/08/20 12:30 No Known Allergies Allergy Verified 03/08/20 12:30 [No Known Allergies*] Home Medications Medication Instructions Recorded Confirmed Type hydroxyzine pamoate 25 mg PO BID PRN 03/08/20 03/08/20 History omeprazole 40 mg PO DAILY@0630 03/08/20 03/08/20 History sertraline 25 mg PO DAILY 03/08/20 03/08/20 History Exam Exam Date and Time: March 10, 2020 1159 Height,Weight and Vital Signs: Height 4 ft 9 in Weight 108 kg Last Vital Signs Temp 97.8 F 03/10/20 11:27 Pulse 72 03/10/20 11:27 Resp 18 03/10/20 11:27 BP 145/61 H 03/10/20 11:27 Pulse Ox 99 03/10/20 11:27 Pertinent Lab Results Pertinent Lab Results: Laboratory Tests 03/08/20 03/08/20 03/08/20 14:20 14:39 14:39 WBC 11.8 H RBC 4.45 Hgb 13.3 Hct 40.7 MCV 91.5 MCH 29.9 MCHC 32.7 RDW 13.2 Plt Count 334 MPV 10.9 Immature Gran % (Auto) 0.4 Neut % (Auto) 79.7 H Lymph % (Auto) 13.7 L [place] % (Auto) 5.6 Eos % (Auto) 0.2 Baso % (Auto) 0.4 Lymph # (Auto) 1.6 [place] # (Auto) 0.7 Eos # (Auto) 0.0 Baso # (Auto) 0.1 Abs Immat Gran (auto) 0.05 H Absolute Neuts (auto) 9.4 H Absolute Nucleated RBC 0.000 Nucleated RBC % (auto) 0.0 PT 11.9 INR 1.0 APTT 34.2 Sodium Potassium Chloride Carbon Dioxide Anion Gap BUN Creatinine Estim Creat Clear Calc Estimated GFR Random Glucose Calcium Total Bilirubin Direct Bilirubin AST ALT Alkaline Phosphatase Troponin I High Sens Total Protein Albumin Lipase Beta HCG, Quant Urine Color YELLOW Urine Appearance CLEAR Urine pH 8.5 H Ur Specific [place] 1.020 Urine Protein NEG Urine Glucose (UA) NEG Urine Ketones NEG Urine Blood NEG Urine Nitrite NEG Ur Leukocyte Esterase TRACE H Urine RBC 0-2 Urine WBC 1-4 Ur Squamous Epith Cells 1+ Ur Renal Epithelial Cell 1+ Urine Bacteria NONE Urine Mucus 1+ 03/08/20 03/08/20 03/09/20 14:39 14:39 05:40 WBC 5.1 RBC 4.04 L Hgb 12.1 Hct 37.4 MCV 92.6 MCH 30.0 MCHC 32.4 RDW 13.5 Plt Count 289 MPV 10.8 Immature Gran % (Auto) Neut % (Auto) Lymph % (Auto) [place] % (Auto) Eos % (Auto) Baso % (Auto) Lymph # (Auto) [place] # (Auto) Eos # (Auto) Baso # (Auto) Abs Immat Gran (auto) Absolute Neuts (auto) Absolute Nucleated RBC 0.000 Nucleated RBC % (auto) 0.0 PT INR APTT Sodium 137 Potassium 3.9 Chloride 104 Carbon Dioxide 24 Anion Gap 13 BUN 8 L Creatinine 0.63 Estim Creat Clear Calc 118.1 Estimated GFR > 60 Random Glucose 90 Calcium 8.5 Total Bilirubin 0.8 Direct Bilirubin 0.5 AST 190 H ALT 103 H Alkaline Phosphatase 131 H D Troponin I High Sens < 3.5 Total Protein 6.5 Albumin 3.9 Lipase 6 L Beta HCG, Quant < 2 Urine Color Urine Appearance Urine pH Ur Specific [place] Urine Protein Urine Glucose (UA) Urine Ketones Urine Blood Urine Nitrite Ur Leukocyte Esterase Urine RBC Urine WBC Ur Squamous Epith Cells Ur Renal Epithelial Cell Urine Bacteria Urine Mucus 03/09/20 03/10/20 05:40 06:01 WBC RBC Hgb Hct MCV MCH MCHC RDW Plt Count MPV Immature Gran % (Auto) Neut % (Auto) Lymph % (Auto) [place] % (Auto) Eos % (Auto) Baso % (Auto) Lymph # (Auto) [place] # (Auto) Eos # (Auto) Baso # (Auto) Abs Immat Gran (auto) Absolute Neuts (auto) Absolute Nucleated RBC Nucleated RBC % (auto) PT INR APTT Sodium 138 Potassium 3.9 Chloride 104 Carbon Dioxide 27 Anion Gap 11 L BUN 6 L Creatinine 0.73 Estim Creat Clear Calc 101.9 Estimated GFR > 60 Random Glucose 109 Calcium 8.3 L Total Bilirubin 0.8 0.4 Direct Bilirubin 0.4 0.2 AST 848 H 252 H ALT 759 H 496 H Alkaline Phosphatase 207 H D 240 H Troponin I High Sens Total Protein 5.9 L 5.8 L Albumin 3.5 3.4 L Lipase Beta HCG, Quant Urine Color Urine Appearance Urine pH Ur Specific [place] Urine Protein Urine Glucose (UA) Urine Ketones Urine Blood Urine Nitrite Ur Leukocyte Esterase Urine RBC Urine WBC Ur Squamous Epith Cells Ur Renal Epithelial Cell Urine Bacteria Urine Mucus Airway Mallampati Class: III TM Dist: >3cm Neck ROM: Full Assessment and Plan Assessment Anesthesia Assessment: Anesthesia Plan Discussed and Chart Reviewed Final Anesthetic Review NPO: Yes ASA Class: III Final Preanesthetic Review: No Changes in Pt Med Stat, Meds/Allgs Chart Reviewed, Consent Obtained/Reviewed and Anes Risks/Benef Reviewed Patient Risk: Intermediate Procedure Risk: Low Assessment/Block/Sedation in SS: Assess/Block/Sedation-SS Anesthetic Plan Anesthetic Plan: GA Disposition: Standard PACU
--- NOTE | 2020-03-10 12:05 | HO.ANESPROP2 ---
[facility] Past Medical History Medical History Hearing loss Social History Social History Household Members: Spouse Housing: Condominium Do you presently have visiting nurse or other home services: No Alcohol intake: never Smoking Status: Never smoker Use of substances other than those prescribed or required for medical reasons: No Currently Displaying Signs/Symptoms of Drug Intoxication Withdrawal: No Have you been hit, kicked, punched, or otherwise hurt by someone within the past year? If so, by whom?: No Do you feel safe in your current relationship?: Yes Is there a partner from a previous relationship who is making you feel unsafe now?: No Are you made to feel afraid or neglected: No Advance Directives: No Advance Directives Information Provided: No Advance Directives on File: No Do you have thoughts of harming others: None Do you have a plan to hurt others: No Plan Recently lost weight without trying: No service: No Current occupational status: unemployed Meds Allergies Allergy/AdvReac Type Severity Reaction Status Date / Time amoxicillin Allergy Unknown rash Verified 03/08/20 12:30 No Known Allergies Allergy Verified 03/08/20 12:30 [No Known Allergies*] Home Medications Medication Instructions Recorded Confirmed Type hydroxyzine pamoate 25 mg PO BID PRN 03/08/20 03/08/20 History omeprazole 40 mg PO DAILY@0630 03/08/20 03/08/20 History sertraline 25 mg PO DAILY 03/08/20 03/08/20 History Exam Exam Date and Time: March 10, 2020 1205 Height,Weight and Vital Signs: Height 4 ft 9 in Weight 108 kg Last Vital Signs Temp 97.8 F 03/10/20 11:27 Pulse 72 03/10/20 11:27 Resp 18 03/10/20 11:27 BP 145/61 H 03/10/20 11:27 Pulse Ox 99 03/10/20 11:27 Pertinent Lab Results Pertinent Lab Results: Laboratory Tests 03/08/20 03/08/20 03/08/20 14:20 14:39 14:39 WBC 11.8 H RBC 4.45 Hgb 13.3 Hct 40.7 MCV 91.5 MCH 29.9 MCHC 32.7 RDW 13.2 Plt Count 334 MPV 10.9 Immature Gran % (Auto) 0.4 Neut % (Auto) 79.7 H Lymph % (Auto) 13.7 L [place] % (Auto) 5.6 Eos % (Auto) 0.2 Baso % (Auto) 0.4 Lymph # (Auto) 1.6 [place] # (Auto) 0.7 Eos # (Auto) 0.0 Baso # (Auto) 0.1 Abs Immat Gran (auto) 0.05 H Absolute Neuts (auto) 9.4 H Absolute Nucleated RBC 0.000 Nucleated RBC % (auto) 0.0 PT 11.9 INR 1.0 APTT 34.2 Sodium Potassium Chloride Carbon Dioxide Anion Gap BUN Creatinine Estim Creat Clear Calc Estimated GFR Random Glucose Calcium Total Bilirubin Direct Bilirubin AST ALT Alkaline Phosphatase Troponin I High Sens Total Protein Albumin Lipase Beta HCG, Quant Urine Color YELLOW Urine Appearance CLEAR Urine pH 8.5 H Ur Specific [place] 1.020 Urine Protein NEG Urine Glucose (UA) NEG Urine Ketones NEG Urine Blood NEG Urine Nitrite NEG Ur Leukocyte Esterase TRACE H Urine RBC 0-2 Urine WBC 1-4 Ur Squamous Epith Cells 1+ Ur Renal Epithelial Cell 1+ Urine Bacteria NONE Urine Mucus 1+ 03/08/20 03/08/20 03/09/20 14:39 14:39 05:40 WBC 5.1 RBC 4.04 L Hgb 12.1 Hct 37.4 MCV 92.6 MCH 30.0 MCHC 32.4 RDW 13.5 Plt Count 289 MPV 10.8 Immature Gran % (Auto) Neut % (Auto) Lymph % (Auto) [place] % (Auto) Eos % (Auto) Baso % (Auto) Lymph # (Auto) [place] # (Auto) Eos # (Auto) Baso # (Auto) Abs Immat Gran (auto) Absolute Neuts (auto) Absolute Nucleated RBC 0.000 Nucleated RBC % (auto) 0.0 PT INR APTT Sodium 137 Potassium 3.9 Chloride 104 Carbon Dioxide 24 Anion Gap 13 BUN 8 L Creatinine 0.63 Estim Creat Clear Calc 118.1 Estimated GFR > 60 Random Glucose 90 Calcium 8.5 Total Bilirubin 0.8 Direct Bilirubin 0.5 AST 190 H ALT 103 H Alkaline Phosphatase 131 H D Troponin I High Sens < 3.5 Total Protein 6.5 Albumin 3.9 Lipase 6 L Beta HCG, Quant < 2 Urine Color Urine Appearance Urine pH Ur Specific [place] Urine Protein Urine Glucose (UA) Urine Ketones Urine Blood Urine Nitrite Ur Leukocyte Esterase Urine RBC Urine WBC Ur Squamous Epith Cells Ur Renal Epithelial Cell Urine Bacteria Urine Mucus 03/09/20 03/10/20 05:40 06:01 WBC RBC Hgb Hct MCV MCH MCHC RDW Plt Count MPV Immature Gran % (Auto) Neut % (Auto) Lymph % (Auto) [place] % (Auto) Eos % (Auto) Baso % (Auto) Lymph # (Auto) [place] # (Auto) Eos # (Auto) Baso # (Auto) Abs Immat Gran (auto) Absolute Neuts (auto) Absolute Nucleated RBC Nucleated RBC % (auto) PT INR APTT Sodium 138 Potassium 3.9 Chloride 104 Carbon Dioxide 27 Anion Gap 11 L BUN 6 L Creatinine 0.73 Estim Creat Clear Calc 101.9 Estimated GFR > 60 Random Glucose 109 Calcium 8.3 L Total Bilirubin 0.8 0.4 Direct Bilirubin 0.4 0.2 AST 848 H 252 H ALT 759 H 496 H Alkaline Phosphatase 207 H D 240 H Troponin I High Sens Total Protein 5.9 L 5.8 L Albumin 3.5 3.4 L Lipase Beta HCG, Quant Urine Color Urine Appearance Urine pH Ur Specific [place] Urine Protein Urine Glucose (UA) Urine Ketones Urine Blood Urine Nitrite Ur Leukocyte Esterase Urine RBC Urine WBC Ur Squamous Epith Cells Ur Renal Epithelial Cell Urine Bacteria Urine Mucus Airway Mallampati Class: II TM Dist: >3cm Neck ROM: Full Assessment and Plan Assessment Anesthesia Assessment: Anesthesia Plan Discussed and Chart Reviewed Final Anesthetic Review NPO: Yes ASA Class: I Final Preanesthetic Review: No Changes in Pt Med Stat, Meds/Allgs Chart Reviewed, Consent Obtained/Reviewed and Anes Risks/Benef Reviewed Patient Risk: Low Procedure Risk: Low Assessment/Block/Sedation in SS: Assess/Block/Sedation-SS Anesthetic Plan Anesthetic Plan: MAC: Disposition: Standard PACU
--- NOTE | 2020-03-10 12:25 | FL_ITS ---
EXAMINATION: XR FLUOROSCOPY WITH IMAGES CLINICAL INFORMATION: CBD stone COMPARISON: MRCP 03/09/2020 TECHNIQUE: Fluoroscopy performed by Dr. Sanju Clark. Fluoroscopy time: 4.1 minutes DAP: 1.76 mGycm2 Images: 5 FINDINGS: There is contrast in the biliary tree which appears to be of normal caliber. There is no focal stricture or visible inferior luminal filling defect on the spot images. FL/FL guidance in OR IMPRESSION: Fluoroscopy for GI procedure.
--- NOTE | 2020-03-10 14:00 | PM.OP ---
Brief Operative Note Date of procedure: 03/10/20 Pre-op diagnosis: CBD stone Procedure: ERCP Surgeon: Sanju Clark Anesthesia: GETA Estimated blood loss (mL): 0 Pathology: none sent Condition: stable
[2020-03-10] MEDS: ondansetron HCL 4 MG/2 ML VIAL IVPUSH (14:18)
--- NOTE | 2020-03-10 14:26 | MHC.CM.PN ---
nurse district manager primary care sales note electronic medical record reviewed along with case discussed with surgical pa patient had a ercp with the senior software project manager removing one stone. district manager primary care sales to continue to follow for any discharge changes discharge plans home with yue francohuber kohli pcp patient to call for post hpospitla dischagre transprtation family
--- NOTE | 2020-03-10 16:03 | PM.EVENT ---
Event Note Event Note: ERCP note dictated 3 mm CBD stone and smaller fragments removed after sphincterotomy. Biliary system non dilated and cystic duct patent. Advance diet CCY per Dr Raymond
--- NOTE | 2020-03-10 16:44 | OP_ITS ---
SURGEON: Sanju Clark MD INDICATIONS: Common bile duct stone. PREOPERATIVE DIAGNOSIS: POSTOPERATIVE DIAGNOSIS: PROCEDURE PERFORMED: ERCP with sphincterotomy and extraction of common bile duct stone and fragments. ESTIMATED BLOOD LOSS: COMPLICATIONS: ANESTHESIA: ASSISTANTS: SPECIMENS: MEDICATIONS: Monitored anesthesia care. DESCRIPTION OF PROCEDURE: History and physical performed. The risks and benefits of the procedure were explained to the patient. Informed consent was obtained. The patient was placed in the prone position with a wedge under the right shoulder. The Olympus therapeutic duodenoscope was introduced into the esophagus, stomach, and duodenum. Examination was performed and the scope was removed. She tolerated the procedure well and was returned to recovery area in stable condition. FINDINGS: ENDOSCOPY: Limited examination of the esophagus, stomach, and duodenum were within normal limits. The major papilla was located in a duodenal diverticulum in the second portion and drained clear yellow bile. The common bile duct was accessed with a guidewire passed to a sphincterotome and cholangiography showed a filling defect consistent with the findings on the MRI. The common bile duct did not seem dilated and the intrahepatics appeared normal. The cystic duct was noted to fill. The sphincterotomy was performed to approximately 6 mm with no immediate complications. A single 3 mm stone was extracted using the sphincterotome and several fragments were noted to spontaneously discharge through the common bile duct. Next, a 9 to 12 mm balloon was inflated in the common bile duct and balloon sweeps produced no additional stone material. There was excellent drainage of clear yellow bile at the termination of the procedure. No pancreatogram was attempted or obtained. IMPRESSION: Common bile duct stones. RECOMMENDATIONS: 1. Follow up as needed. 2. Advanced diet. 3. Laparoscopic cholecystectomy per Dr. Raymond. MD LILIANA Warren/ELISA / [id number]
[2020-03-11] MEDS: Dextrose 5 % and Lactated Ring 1,000 ML 125 ML IVCONT ×2 (07:28→16:39)
[2020-03-11 07:34] VITALS: BP 127/72; PULSE 74; RESP 16; TEMP 36.3; O2SAT 97
[2020-03-11 08:09] LABS: Alanine Aminotransferase 306 U/L (0-31); Albumin Level 3.4 g/dL (3.5-5.0); Alkaline Phosphatase 197 U/L (39-117); Aspartate Amino Transferase 75 U/L (5-31); Bilirubin Direct 0.2 mg/dL (0.0-0.5); Bilirubin Total 0.3 mg/dL (0.0-1.0); Total Protein 5.7 g/dL (6.5-8.0)
[2020-03-11 11:08] VITALS: BP 150/86; PULSE 89; RESP 19; TEMP 35.9
[2020-03-11 16:05] VITALS: BP 135/75; PULSE 82; RESP 18; TEMP 36.9; O2SAT 96
--- NOTE | 2020-03-11 17:55 | PM.PNGS ---
Subjective Subjective Patient reports: no new complaints, feels better, tolerating a regular diet and bowel movement <LISS Alonzo - Last Filed: 03/11/20 19:12> Interval history: She states that she feel better, no new complaints. She is asking when her CCY will be done. She has ABD discomfort however this is mild. She is tolerating a regular diet <LISS Alonzo - Last Filed: 03/11/20 19:12> Physical Exam Vital Signs: Vital Signs: Vital Signs Temp Pulse Resp BP Pulse Ox 03/11/20 16:05 98.4 F 82 18 135/75 96 03/11/20 11:08 96.7 F L 89 19 150/86 H 03/11/20 07:34 97.4 F 74 16 127/72 97 03/10/20 23:21 97 F 86 18 141/68 H 96 Body Mass Index 51.5 <LISS Alonzo - Last Filed: 03/11/20 19:12> Resp: Effort & Inspection: normal respiratory effort and able to speak in complete sentences <LISS Alonzo - Last Filed: 03/11/20 19:12> Cardio: Rate: regular rate <LISS Alonzo - Last Filed: 03/11/20 19:12> GI: Inspection: Yes normal to inspection and Yes Abdominal panniculus present <LISS Alonzo - Last Filed: 03/11/20 19:12> Palpation (GI): Soft to palpation and Tenderness to palpation present (GI) (mildly tender over the Right side) <LISS Alonzo - Last Filed: 03/11/20 19:12> Auscultation: normal bowel sounds <LISS Alonzo - Last Filed: 03/11/20 19:12> Skin: General skin exam: no rashes or lesions noted <LISS Alonzo Last Filed: 03/11/20 19:12> Progress Note: A&P Assessment and plan (1) Transaminitis: Problem details: LFT improved but still elevated following ERCP <LISS Alonzo Last Filed: 03/11/20 19:12> Status: Acute <LISS Alonzo Last Filed: 03/11/20 19:12> Assessment and Plan: Continue current care. <LISS Alonzo - Last Filed: 03/11/20 19:12> (2) Cholecystitis, acute with cholelithiasis: Status: Acute <LISS Alonzo - Last Filed: 03/11/20 19:12> Assessment and Plan: Plan is to have CCY at some point next week. Continue pain mgmt and ABX <LISS Alonzo - Last Filed: 03/11/20 19:12> Fall Risk Details Current Medications: Current Medications Generic Name Dose Route Start Last Admin Trade Name Freq PRN Reason Stop Dose Admin Acetaminophen 650 mg 03/08/20 16:57 Acetaminophen 325 Mg Tablet PO QID PRN headache, temp > 101 Acetaminophen 650 mg 03/10/20 12:05 Acetaminophen 325 Mg Tablet PO ONCE PRN Pain, Mild (Pain Scale 1-3) Acetaminophen 650 mg 03/10/20 13:20 Acetaminophen 325 Mg Tablet PO ONCE PRN Pain, Mild (Pain Scale 1-3) Cefotetan Disodium 2 gm/ 50 mls @ 100 mls/hr 03/08/20 22:00 03/11/20 14:15 Dextrose IV Infused Q12H CATHERINE Infusion Morphine Sulfate 4 mg 03/08/20 16:57 03/10/20 06:29 Morphine Sulfate 4 Mg/Ml Cartridge IVPUSH 4 mg Q3H PRN Administration abdominal pain Ondansetron HCl 4 mg 03/08/20 16:57 03/09/20 22:40 Ondansetron Hcl 4 Mg/2 Ml Vial IVPUSH 4 mg QID PRN Administration Nausea Ondansetron HCl 4 mg 03/10/20 12:05 03/10/20 14:18 Ondansetron Hcl 4 Mg/2 Ml Vial IVPUSH 4 mg ONCE PRN Administration Nausea and Vomiting Ondansetron HCl 4 mg 03/10/20 13:20 Ondansetron Hcl 4 Mg/2 Ml Vial IVPUSH ONCE PRN Nausea and Vomiting Oxycodone HCl 5 mg 03/10/20 12:05 Oxycodone Hcl Immed Release 5 Mg Tablet PO ONCE PRN Pain, Severe (Pain Scale 7-10) Oxycodone HCl 5 mg 03/10/20 13:20 Oxycodone Hcl Immed Release 5 Mg Tablet PO ONCE PRN Pain, Severe (Pain Scale 7-10) Zolpidem Tartrate 5 mg 03/08/20 16:57 Zolpidem Tartrate 5 Mg Tablet PO BEDTIME PRN Insomnia <LISS Alonzo - Last Filed: 03/11/20 19:12> Time Spent With Patient Time: Total time spent is greater than 50% in coordination of care (as documented) at patient's floor/unit and/or counseling patient: <LISS Alonzo - Last Filed: 03/11/20 19:12> Time with patient: less than 15 minutes <Missy Price MD - Last Filed: 03/11/20 19:07> Progress Note: Quality VTE Deep Vein Thrombosis/Pulmonary Embolism Present on Admission: No <LISS Alonzo - Last Filed: 03/11/20 19:12>
--- NOTE | 2020-03-11 18:48 | P.PNGS_ITS ---
Physical Exam Vital Signs: Vital Signs: Vital Signs Temp Pulse Resp BP Pulse Ox 03/11/20 16:05 98.4 F 82 18 135/75 96 03/11/20 11:08 96.7 F L 89 19 150/86 H 03/11/20 07:34 97.4 F 74 16 127/72 97 03/10/20 23:21 97 F 86 18 141/68 H 96 Body Mass Index 51.5 Progress Note: A&P Fall Risk Details Current Medications: Current Medications Generic Name Dose Route Start Last Admin Trade Name Freq PRN Reason Stop Dose Admin Acetaminophen 650 mg 03/08/20 16:57 Acetaminophen 325 Mg Tablet PO QID PRN headache, temp > 101 Acetaminophen 650 mg 03/10/20 12:05 Acetaminophen 325 Mg Tablet PO ONCE PRN Pain, Mild (Pain Scale 1-3) Acetaminophen 650 mg 03/10/20 13:20 Acetaminophen 325 Mg Tablet PO ONCE PRN Pain, Mild (Pain Scale 1-3) Cefotetan Disodium 2 gm/ 50 mls @ 100 mls/hr 03/08/20 22:00 03/11/20 14:15 Dextrose IV Infused Q12H CATHERINE Infusion Morphine Sulfate 4 mg 03/08/20 16:57 03/10/20 06:29 Morphine Sulfate 4 Mg/Ml Cartridge IVPUSH 4 mg Q3H PRN Administration abdominal pain Ondansetron HCl 4 mg 03/08/20 16:57 03/09/20 22:40 Ondansetron Hcl 4 Mg/2 Ml Vial IVPUSH 4 mg QID PRN Administration Nausea Ondansetron HCl 4 mg 03/10/20 12:05 03/10/20 14:18 Ondansetron Hcl 4 Mg/2 Ml Vial IVPUSH 4 mg ONCE PRN Administration Nausea and Vomiting Ondansetron HCl 4 mg 03/10/20 13:20 Ondansetron Hcl 4 Mg/2 Ml Vial IVPUSH ONCE PRN Nausea and Vomiting Oxycodone HCl 5 mg 03/10/20 12:05 Oxycodone Hcl Immed Release 5 Mg Tablet PO ONCE PRN Pain, Severe (Pain Scale 7-10) Oxycodone HCl 5 mg 03/10/20 13:20 Oxycodone Hcl Immed Release 5 Mg Tablet PO ONCE PRN Pain, Severe (Pain Scale 7-10) Zolpidem Tartrate 5 mg 03/08/20 16:57 Zolpidem Tartrate 5 Mg Tablet PO BEDTIME PRN Insomnia Time Spent With Patient Time: Due to unfamiliarity with the new EMR [employer], I am writing a brief note as a miscellaneous note. Patient is doing well. She states she is feeling well without significant pain. Possible gallbladder surgery this week. No new active issue. Time with patient: less than 15 minutes Progress Note: Quality VTE Deep Vein Thrombosis/Pulmonary Embolism Present on Admission: No
--- NOTE | 2020-03-11 19:12 | HO.POSTANES ---
Post Anesthesia Evaluation Post Anesthesia Evaluation Vital Signs: Vital Signs Temp Pulse Resp BP Pulse Ox 03/11/20 16:05 98.4 F 82 18 135/75 96 03/11/20 11:08 96.7 F L 89 19 150/86 H 03/11/20 07:34 97.4 F 74 16 127/72 97 Anesthesia: General Mental Status: Awake Pain Control: Satisfactory Nausea/Vomiting: None Hydration: Adequate Anesthesia-Related Issues: No Anes. Related Issues
[2020-03-12 00:18] VITALS: BP 134/72; PULSE 64; RESP 16; TEMP 37.1; O2SAT 98
[2020-03-12 07:16] VITALS: BP 148/62; PULSE 73; RESP 17; TEMP 36.2; O2SAT 99
--- NOTE | 2020-03-12 10:09 | MHC.CM.PN ---
nurse medicare coordinator note eectrnic meeical record reviewed along with case discussed with staff nurse , met with patient , per documentation patient had by dr patti roach of [facility] and small fragements after sphincteromy and plans for sugery early this week . patient continues on iv cefeton and iv fluids at 125 cc hour. discharge plan anticipated home no services medicare coordinator to continue to follow pcp patient to call for follow up[ post discharge instructions transportation family dr armstrong follow up per discharge instructions
[2020-03-12 11:36] VITALS: BP 149/63; PULSE 68; RESP 19; TEMP 36.1; O2SAT 97
--- NOTE | 2020-03-12 12:11 | PM.PNGS ---
Subjective Subjective Patient reports: no new complaints, feels better, tolerating a regular diet and bowel movement <LISS Alonzo - Last Filed: 03/12/20 14:33> Physical Exam Vital Signs: Vital Signs: Vital Signs Temp Pulse Resp BP Pulse Ox 03/12/20 11:36 97.0 F 68 19 149/63 H 97 03/12/20 07:16 97.1 F 73 17 148/62 H 99 03/12/20 00:18 98.8 F 64 16 134/72 98 03/11/20 16:05 98.4 F 82 18 135/75 96 Body Mass Index 51.5 <LISS Alonzo - Last Filed: 03/12/20 14:33> Const: General: cooperative and no acute distress <LISS Alonzo - Last Filed: 03/12/20 14:33> GI: Inspection: Yes Abdominal panniculus present <LISS Alonzo - Last Filed: 03/12/20 14:33> Palpation (GI): Soft to palpation and Tenderness to palpation present (GI) (Mild tenderness to palp in the RUQ and RLQ) <LISS Alonzo - Last Filed: 03/12/20 14:33> Auscultation: normal bowel sounds <LISS Alonzo - Last Filed: 03/12/20 14:33> Skin: General skin exam: no rashes or lesions noted <LISS Alonzo - Last Filed: 03/12/20 14:33> Extrem: General: Yes no calf tenderness <LISS Alonzo - Last Filed: 03/12/20 14:33> Psych: Speech and movement: Normal speech and movement present <LISS Alonzo - Last Filed: 03/12/20 14:33> Progress Note: A&P Assessment and plan (1) Cholecystitis, acute with cholelithiasis: Problem details: Plan for CCY to be discussed with Dr Raymond tomorrow. <LISS Alonzo - Last Filed: 03/12/20 14:33> Status: Acute <LISS Alonzo Last Filed: 03/12/20 14:33> Assessment and Plan: Continue pain mgmt as needed Encouraged OOB Regular diet Continue ABX <LISS Alonzo - Last Filed: 03/12/20 14:33> (2) Transaminitis: Problem details: LFT's continue to downtrend but still elevated following ERCP <LISS Alonzo - Last Filed: 03/12/20 14:33> Status: Acute <LISS Alonzo - Last Filed: 03/12/20 14:33> Assessment and Plan: No change in care needed. <LISS Alonzo - Last Filed: 03/12/20 14:33> Fall Risk Details Current Medications: Current Medications Generic Name Dose Route Start Last Admin Trade Name Freq PRN Reason Stop Dose Admin Acetaminophen 650 mg 03/08/20 16:57 Acetaminophen 325 Mg Tablet PO QID PRN headache, temp > 101 Acetaminophen 650 mg 03/10/20 12:05 Acetaminophen 325 Mg Tablet PO ONCE PRN Pain, Mild (Pain Scale 1-3) Acetaminophen 650 mg 03/10/20 13:20 Acetaminophen 325 Mg Tablet PO ONCE PRN Pain, Mild (Pain Scale 1-3) Cefotetan Disodium 2 gm/ 50 mls @ 100 mls/hr 03/08/20 22:00 03/12/20 09:48 Dextrose IV Infused Q12H CATHERINE Infusion Morphine Sulfate 4 mg 03/08/20 16:57 03/10/20 06:29 Morphine Sulfate 4 Mg/Ml Cartridge IVPUSH 4 mg Q3H PRN Administration abdominal pain Ondansetron HCl 4 mg 03/08/20 16:57 03/09/20 22:40 Ondansetron Hcl 4 Mg/2 Ml Vial IVPUSH 4 mg QID PRN Administration Nausea Ondansetron HCl 4 mg 03/10/20 12:05 03/10/20 14:18 Ondansetron Hcl 4 Mg/2 Ml Vial IVPUSH 4 mg ONCE PRN Administration Nausea and Vomiting Ondansetron HCl 4 mg 03/10/20 13:20 Ondansetron Hcl 4 Mg/2 Ml Vial IVPUSH ONCE PRN Nausea and Vomiting Oxycodone HCl 5 mg 03/10/20 12:05 Oxycodone Hcl Immed Release 5 Mg Tablet PO ONCE PRN Pain, Severe (Pain Scale 7-10) Oxycodone HCl 5 mg 03/10/20 13:20 Oxycodone Hcl Immed Release 5 Mg Tablet PO ONCE PRN Pain, Severe (Pain Scale 7-10) Zolpidem Tartrate 5 mg 03/08/20 16:57 Zolpidem Tartrate 5 Mg Tablet PO BEDTIME PRN Insomnia <LISS Alonzo - Last Filed: 03/12/20 14:33> Time Spent With Patient Time: Total time spent is greater than 50% in coordination of care (as documented) at patient's floor/unit and/or counseling patient: <LISS Alonzo - Last Filed: 03/12/20 14:33> Patient was examined and evaluated at th bedside with Mr. Lj Dooley PA-C, and I confirm his findings and plan as documented above. No active issue. RUQ still slightly tender. There is a question of surgery (lap cholecystex) this coming week. <Missy Price MD - Last Filed: 03/12/20 15:24> Time with patient: less than 15 minutes <LISS Alonzo Last Filed: 03/12/20 14:33> Progress Note: Quality VTE Deep Vein Thrombosis/Pulmonary Embolism Present on Admission: No <LISS Alonzo - Last Filed: 03/12/20 14:33>
[2020-03-12 15:26] VITALS: BP 167/92; PULSE 84; RESP 18; TEMP 36.3; O2SAT 98
[2020-03-12] MEDS: oxyCODONE HCl Immed Release 5 MG TABLET PO (20:00)
[2020-03-12 23:07] VITALS: BP 148/96; PULSE 84; RESP 20; TEMP 36.8; O2SAT 96
[2020-03-13] VITALS (16 sets, daily range): BP systolic 118–169; BP diastolic 61–97; PULSE 68–110; RESP 14–20; TEMP 36–37; O2SAT 94–100; BMI 51.5
--- NOTE | 2020-03-13 09:13 | PM.PNGS ---
Subjective Subjective Patient reports: no new complaints Interval history: Complains of right upper quadrant abdominal pain. Denies nausea or vomiting Physical Exam Vital Signs: Vital Signs: Vital Signs Temp Pulse Resp BP Pulse Ox 03/13/20 08:13 96.8 F 75 18 120/66 97 03/12/20 23:07 98.2 F 84 20 148/96 H 96 03/12/20 15:26 97.4 F 84 18 167/92 H 98 03/12/20 11:36 97.0 F 68 19 149/63 H 97 Body Mass Index 51.5 Const: General: cooperative, healthy appearing, comfortable and no acute distress Eyes: Sclerae: sclerae normal Resp: Effort & Inspection: normal respiratory effort and no respiratory distress Auscultation: clear to auscultation bilaterally Cardio: Jugular venous distension: no JVD Rate: regular rate Rhythm: regular rhythm Heart sounds: S1 normal heart sound present and S2 normal heart sound present GI: Inspection: Yes normal to inspection and Yes obesity Palpation (GI): Soft to palpation and Tenderness to palpation present (GI) in the RUQ and Jane's sign positive Percussion: Yes normal to percussion Auscultation: normal bowel sounds Skin: General skin exam: no rashes or lesions noted and turgor normal Wounds: no wounds Extrem: General: Yes normal to inspection Psych: Appearance: grossly normal Progress Note: A&P Assessment and plan (1) Cholecystitis, acute with cholelithiasis: Problem details: Plan for CCY today. 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 She will be added on to the OR schedule for today. Status: Acute Fall Risk Details Current Medications: Current Medications Generic Name Dose Route Start Last Admin Trade Name Freq PRN Reason Stop Dose Admin Acetaminophen 650 mg 03/08/20 16:57 Acetaminophen 325 Mg Tablet PO QID PRN headache, temp > 101 Acetaminophen 650 mg 03/10/20 12:05 Acetaminophen 325 Mg Tablet PO ONCE PRN Pain, Mild (Pain Scale 1-3) Acetaminophen 650 mg 03/10/20 13:20 Acetaminophen 325 Mg Tablet PO ONCE PRN Pain, Mild (Pain Scale 1-3) Cefotetan Disodium 2 gm/ 50 mls @ 100 mls/hr 03/08/20 22:00 03/12/20 21:57 Dextrose IV Infused Q12H CATHERINE Infusion Cefotetan Disodium 2 gm in 50 mls @ 100 mls/hr 03/13/20 08:38 Cefotan IV 03/13/20 09:07 PREOP ONE Morphine Sulfate 4 mg 03/08/20 16:57 03/10/20 06:29 Morphine Sulfate 4 Mg/Ml Cartridge IVPUSH 4 mg Q3H PRN Administration abdominal pain Ondansetron HCl 4 mg 03/08/20 16:57 03/09/20 22:40 Ondansetron Hcl 4 Mg/2 Ml Vial IVPUSH 4 mg QID PRN Administration Nausea Ondansetron HCl 4 mg 03/10/20 12:05 03/10/20 14:18 Ondansetron Hcl 4 Mg/2 Ml Vial IVPUSH 4 mg ONCE PRN Administration Nausea and Vomiting Ondansetron HCl 4 mg 03/10/20 13:20 Ondansetron Hcl 4 Mg/2 Ml Vial IVPUSH ONCE PRN Nausea and Vomiting Oxycodone HCl 5 mg 03/10/20 13:20 Oxycodone Hcl Immed Release 5 Mg Tablet PO ONCE PRN Pain, Severe (Pain Scale 7-10) Zolpidem Tartrate 5 mg 03/08/20 16:57 Zolpidem Tartrate 5 Mg Tablet PO BEDTIME PRN Insomnia Time Spent With Patient Time: Total time spent is greater than 50% in coordination of care (as documented) at patient's floor/unit and/or counseling patient: 20 Time with patient: 15 - 24 minutes Progress Note: Quality VTE Deep Vein Thrombosis/Pulmonary Embolism Present on Admission: No
--- NOTE | 2020-03-13 13:31 | HO.ANESPROP2 ---
[facility] Past Medical History Medical History Hearing loss Social History Social History Household Members: Spouse Housing: Condominium Do you presently have visiting nurse or other home services: No Alcohol intake: never Smoking Status: Never smoker Use of substances other than those prescribed or required for medical reasons: No Currently Displaying Signs/Symptoms of Drug Intoxication Withdrawal: No Have you been hit, kicked, punched, or otherwise hurt by someone within the past year? If so, by whom?: No Do you feel safe in your current relationship?: Yes Is there a partner from a previous relationship who is making you feel unsafe now?: No Are you made to feel afraid or neglected: No Advance Directives: No Advance Directives Information Provided: No Advance Directives on File: No Do you have thoughts of harming others: None Do you have a plan to hurt others: No Plan Recently lost weight without trying: No service: No Current occupational status: unemployed Meds Allergies Allergy/AdvReac Type Severity Reaction Status Date / Time amoxicillin Allergy Unknown rash Verified 03/08/20 12:30 No Known Allergies Allergy Verified 03/08/20 12:30 [No Known Allergies*] Home Medications Medication Instructions Recorded Confirmed Type hydroxyzine pamoate 25 mg PO BID PRN 03/08/20 03/08/20 History omeprazole 40 mg PO DAILY@0630 03/08/20 03/08/20 History sertraline 25 mg PO DAILY 03/08/20 03/08/20 History Exam Airway Mallampati Class: II TM Dist: >3cm Neck ROM: Full Heart: RRR Lungs: CTA BL Assessment and Plan Assessment Anesthesia Assessment: Anesthesia Plan Discussed and Chart Reviewed Final Anesthetic Review NPO: Yes ASA Class: III Final Preanesthetic Review: Meds/Allgs Chart Reviewed and Consent Obtained/Reviewed Patient Risk: Intermediate Procedure Risk: Intermediate Anesthetic Plan Anesthetic Plan: GA Disposition: Standard PACU
--- NOTE | 2020-03-13 14:42 | MHC.SHP ---
Pre-Procedural Eval Section A The patient is an INPATIENT: Yes Changes since office visit: Yes Patient answered all questions; No Cold of Flu in the past 2 weeks, No New Medical Problems and No Changes in Medication The History & Physical has been completed within 30 days and I have reviewed it.: Yes Section B Chief Complaint: acute cholecystitis, cholelithiasis Allergies: Allergies Allergy/AdvReac Type Severity Reaction Status Date / Time amoxicillin Allergy Unknown rash Verified 03/08/20 12:30 No Known Allergies Allergy Verified 03/08/20 12:30 [No Known Allergies*] Plan Diagnosis/Plan: Unchanged Patient has been examined and remains a candidate for the planned procedure
--- NOTE | 2020-03-13 16:45 | PM.OP ---
Brief Operative Note Date of procedure: 03/13/20 Pre-op diagnosis: Acute cholecystitis, cholelithiasis, choledocholithiasis Post-op diagnosis: same Procedure: laparoscopic cholecystectomy Implants: none Surgeon: Fadi Raymond MD Anesthesia: JUANITO Accounting Generalist: Latha Smith Estimated blood loss (mL): 20 Pathology: other ( gallbladder) Condition: stable Disposition: PACU
--- NOTE | 2020-03-13 16:49 | P.OP_ITS ---
Operative Note Operative Note Narrative: Date of procedure: 03/13/20 Pre-op diagnosis: Acute cholecystitis, cholelithiasis, choledocholithiasis Post-op diagnosis: same Procedure: laparoscopic cholecystectomy Indications for surgery: 44-year-old female patient presenting with complaints of abdominal pain in the right upper quadrant and left upper quadrant found to have multiple gallstones within the gallbladder and several stones within the common bile duct. She is status post ERCP with removal of a large gallstone. She presents today for laparoscopic cholecystectomy. Operative findings: Patient was found to have a large gallbladder with distended with multiple gallstones and a large cystic duct. Operative summary: Patient was brought to the OR placed in a supine position. After administering general anesthesia the patient's abdomen was prepped with ChloraPrep and draped in a sterile fashion. A surgical time-out was called and the consent confirmed. Patient received preoperative antibiotics and Venodyne boots were in place. Local anesthesia consisting of 0.75% Sensorcaine was then infiltrated in a periumbilical region. A 5 mm incision was made above the umbilicus in a transverse fashion. A Veress needle was then inserted into the abdominal cavity while elevating the abdominal cavity with towel clips. After a positive drop test the abdomen was insufflated to a pressure of 15 mm of mercury. The Veress needle was removed and a 5 mm trocar inserted. The abdomen is explored and the above findings noted. A 12 mm trocar was then placed in the epigastrium and 2 5 mm trocars placed in the right upper quadrant. The patient was then placed in reverse Trendelenburg position rotated to the left. The gallbladder was grasped with the fundus and retracted cephalad. Adhesions were taken down off the undersurface of the gallbladder. The infundibulum was identified and found to be quite distended due to a gallstone. This was carefully milked distally into the gallbladder. The infundibulum was grasped and retracted away from the liver bed. Peritoneum was taken down off the gallbladder infundibulum to reveal the junction with the cystic duct. The cystic duct was noted to be very thick and enlarged. A gallstone was milked back into the gallbladder as well. Cystic artery was noted slightly medial and posterior to the cystic duct. After obtaining a critical view the cystic artery was doubly clipped and divided. The cystic duct being quite thick was much thicker than could be closed with An Endo clip. Once confirming the location in the cystic duct and Endo-SARAVANAN stapler with a purple reload was used to divide the cystic duct just below the infundibulum. The gallbladder was then dissected off the liver bed using electrocautery. Hemostasis was assured all times using electrocautery. The gallbladder was then placed in Endo-Catch bag and brought out through the epigastric incision. The gallbladder fossa was then irrigated with saline solution and suctioned dry. A Dane-Clark drain was then placed into the gallbladder fossa and brought out through the lateral trocar site. This was secured the skin with a 3 0 nylon suture. The tube was then connected to bulb suction. Trocars removed and CO2 evacuated. Fascia was closed at the epigastric incision using a [id number] 0 Polysorb suture. Skin was closed in all incisions using a subcuticular 4 0 Polysorb suture. Steri-Strips 2 x 2 gauze and Tegaderm were then applied to all 4 incisi ons. The patient tolerated the procedure well. Sponge, instrument, and needle counts were reported as correct. The patient was transferred to PACU in stable condition. Drains: Seven Dane-Clark drain Implants: none Surgeon: Fadi Raymond MD Anesthesia: JUANITO Hcc Coders: Latha Smith Estimated blood loss (mL): 20 Pathology: other ( gallbladder) Condition: stable Disposition: PACU
[2020-03-13] MEDS: ondansetron HCL 4 MG/2 ML VIAL IVPUSH (17:07)
[2020-03-13] MEDS: fentaNYL citrate/PF 100 MCG/2 ML VIAL 50 MCG IVPUSH (17:09)
[2020-03-13] MEDS: Dextrose 5 % and Lactated Ring 1,000 ML 100 ML IVCONT (20:43)
[2020-03-13] MEDS: Zolpidem Tartrate 5 MG TABLET PO (21:04)
[2020-03-13] MEDS: oxyCODONE HCl Immed Release 5 MG TABLET PO (21:04)
[2020-03-14] MEDS: 0.9 % Sodium Chloride Flush 3 ML SYRINGE IVFLUSH (01:26)
[2020-03-14 03:43] VITALS: BP 142/69; PULSE 74; RESP 19; TEMP 36.7; O2SAT 97
[2020-03-14 06:11] LABS: MANUAL DIFF FLAG NO
[2020-03-14] MEDS: Omeprazole 40 MG CAPSULE.DR PO (06:16)
[2020-03-14] MEDS: Dextrose 5 % and Lactated Ring 1,000 ML 100 ML IVCONT (06:17)
[2020-03-14 06:20] LABS: Basophils Percent Auto 0.3 % (0-2); Hematocrit 36.8 % (37-47); Hemoglobin 12.3 g/dl (12.0-16.0); Imm Gran Abs Auto 0.03 X10*3/uL (0.00-0.03); Imm Gran Pct Auto 0.3 % (0.0-0.4); Lymphocytes Absolute Auto 1.7 X10*3/uL (1.2-4.9); Lymphocytes Percent Auto 19.2 % (20-40); Mean Corpuscular HGB Conc 33.4 g/dl (31.0-35.0); Mean Corpuscular Hemoglobin 30.3 pg (27.0-33.0); Mean Corpuscular Volume 90.6 fL (80-98); Mean Platelet Volume 11.4 fL (9.4-12.3); Monocytes Absolute Auto 0.5 X10*3/uL (0.1-1.2); Neutrophils Absolute Auto 6.5 X10*3/uL (2.0-8.3); Neutrophils Percent Auto 74.2 % (45-73); Platelet Count 321 X10*3/uL (160-400); Red Blood Count 4.06 X10*6/uL (4.20-5.50); Red Cell Distribution Width 13.7 % (11.0-16.0); White Blood Count 8.8 X10*3/uL (4.8-10.8)
[2020-03-14 06:44] LABS: Anion Gap 13 (12-20); Blood Urea Nitrogen 6 mg/dL (9-16); Calcium 8.4 mg/dL (8.4-10.2); Carbon Dioxide 27 mmol/L (22-29); Chloride 101 mmol/L (96-108); Creatinine Clr Calc Pharmacy 114.5; Estimated Glomerular Filt Rate > 60; Glucose Random 118 mg/dL (60-115); Potassium 3.9 mmol/l (3.3-5.1); Sodium 137 mmol/L (135-145)
--- NOTE | 2020-03-14 07:52 | PM.PNGS ---
Subjective Subjective Interval history: Feels well this morning, some mild incisional pain. Has not eaten yet. OOB to bathroom. Wants to go home. <PREMA Tello Last Filed: 03/14/20 07:56> Physical Exam Vital Signs: Vital Signs: Vital Signs Temp Pulse Resp BP Pulse Ox 03/14/20 03:43 98.0 F 74 19 142/69 H 97 03/13/20 23:24 98.6 F 110 H 19 118/83 95 03/13/20 20:00 96.9 F 75 20 145/79 H 96 03/13/20 19:02 97.7 F 92 19 145/73 H 96 03/13/20 18:31 88 16 153/86 H 94 03/13/20 18:15 98.1 F 90 14 152/88 H 95 03/13/20 18:00 96 17 146/76 H 97 03/13/20 17:45 98 17 147/80 H 95 03/13/20 17:30 92 16 163/80 H 96 03/13/20 17:14 95 17 169/97 H 96 03/13/20 17:09 95 16 141/79 H 97 03/13/20 17:05 96 16 123/71 98 03/13/20 17:00 94 14 123/70 98 03/13/20 16:55 92 17 133/61 97 03/13/20 16:50 98.6 F 86 14 142/75 H 100 03/13/20 08:13 96.8 F 75 18 120/66 97 Body Mass Index 51.5 <PREMA Tello Last Filed: 03/14/20 07:56> Const: General: comfortable, no acute distress and alert <PREMA Tello Last Filed: 03/14/20 07:56> Orientation/consciousness: patient oriented x3 <PREMA Tello Last Filed: 03/14/20 07:56> Eyes: Sclerae: sclerae normal <PREMA Tello Last Filed: 03/14/20 07:56> Resp: Effort & Inspection: normal respiratory effort <PREMA Tello Last Filed: 03/14/20 07:56> Cardio: Rate: regular rate <Latha Smith PA-C - Last Filed: 03/14/20 07:56> GI: Inspection: No distended, Yes incision (dressings intact) and Yes other (KYRA drain with serous output) <PREMA Tello Last Filed: 03/14/20 07:56> Palpation (GI): Soft to palpation, Tenderness to palpation present (GI) (mild, incisional), no guarding, not rigid and No Rebound tenderness present <Latha Smith PA-C - Last Filed: 03/14/20 07:56> Skin: General skin exam: no rashes or lesions noted <PREMA Tello Last Filed: 03/14/20 07:56> Neuro: General: patient oriented x3 <PREMA Tello Last Filed: 03/14/20 07:56> Extrem: General: Yes no clubbing, cyanosis or edema <PREMA Tello Last Filed: 03/14/20 07:56> Progress Note: A&P Assessment and plan (1) Transaminitis: Status: Acute <PREMA Tello Last Filed: 03/14/20 07:56> (2) Cholecystitis, acute with cholelithiasis: Status: Acute <PREMA Tello Last Filed: 03/14/20 07:56> (3) S/P laparoscopic cholecystectomy: Status: Acute <PREMA Tello Last Filed: 03/14/20 07:56> Assessment and Plan: Doing well post op, comfortable. VSS. Abd exam benign with appropriate post op tenderess, KYRA drain with serous output. Drain removed. AM labs ok. Will reassess following breakfast, if tolerating solid diet stable for d/c to home today. Patient comfortable with plan. <PREMA Tello Last Filed: 03/14/20 07:56> Janessa feels much improved this morning following laparoscopic cholecystectomy. She denies nausea or vomiting in describes the usual epigastric abdominal pain. Her incisions are clean and intact with a small amount of serosanguineous drainage. Dane-Clark drain removed. Agree with the above assessment and plan. Patient feels ready for discharge. Will discharged later today if tolerating regular diet. <Fadi Raymond MD - Last Filed: 03/14/20 08:19> Fall Risk Details Current Medications: Current Medications Generic Name Dose Route Start Last Admin Trade Name Freq PRN Reason Stop Dose Admin Acetaminophen 650 mg 03/08/20 16:57 Acetaminophen 325 Mg Tablet PO QID PRN headache, temp > 101 Hydroxyzine HCl 25 mg 03/13/20 19:26 Hydroxyzine Hcl 25 Mg Tablet PO BID PRN Anxiety Dextrose/Lactated Ringer's 1,000 mls @ 100 mls/hr 03/13/20 19:12 03/14/20 06:17 D5lr IVCONT 100 mls/hr .Q10H CATHERINE Administration Morphine Sulfate 4 mg 03/13/20 17:00 Morphine Sulfate 4 Mg/Ml Cartridge IVPUSH Q3H PRN abdominal pain Omeprazole 40 mg 03/14/20 06:30 03/14/20 06:16 Omeprazole 40 Mg Capsule.Dr PO 40 mg DAILY@0630 CATHERINE Administration Ondansetron HCl 4 mg 03/08/20 16:57 03/13/20 17:07 Ondansetron Hcl 4 Mg/2 Ml Vial IVPUSH 4 mg QID PRN Administration Nausea Oxycodone HCl 5 mg 03/13/20 19:12 03/13/20 21:04 Oxycodone Hcl Immed Release 5 Mg Tablet PO 5 mg Q4H PRN Administration Pain, Moderate (Pain Scale 4-6 Sertraline HCl 25 mg 03/14/20 09:00 Sertraline Hcl 25 Mg Tablet PO DAILY CATHERINE Sodium Chloride 3 ml 03/14/20 00:00 03/14/20 07:32 0.9 % Sodium Chloride Flush 3 Ml Syringe IVFLUSH Not Given QSHIFT CATHERINE Zolpidem Tartrate 5 mg 03/13/20 17:00 03/13/20 21:04 Zolpidem Tartrate 5 Mg Tablet PO 5 mg BEDTIME PRN Administration Insomnia <Latha Smith PA-C - Last Filed: 03/14/20 07:56> Time Spent With Patient Time: Total time spent is greater than 50% in coordination of care (as documented) at patient's floor/unit and/or counseling patient: <Latha Smith PA-C - Last Filed: 03/14/20 07:56> Time with patient: 15 - 24 minutes <Latha Smith PA-C - Last Filed: 03/14/20 07:56> Progress Note: Quality VTE Deep Vein Thrombosis/Pulmonary Embolism Present on Admission: No <Latha Smith PA-C - Last Filed: 03/14/20 07:56>
[2020-03-14 07:58] VITALS: BP 143/81; PULSE 87; RESP 18; TEMP 36.1; O2SAT 98
[2020-03-14] MEDS: Sertraline HCL 25 MG TABLET PO (08:29)
[2020-03-14] MEDS: Acetaminophen 325 MG TABLET 650 MG PO (08:29)
--- NOTE | 2020-03-14 08:56 | MHC.CM.PN ---
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 MET WITH PATIENT SHE VERBALIZING TYRONE SHE WANTS TO GO HOME TODAY . ADVANCING DIET AND IF SHE IS ABLE TO TOLERATED THE DIET AND HAS GOOD PAIN CONTROL SHE WILL BE D/C TODAY DIACHARGE PLAN HOME WITH NO SERVICES PCP [facility] TO CALL FOR APPOINTMENT TO BE SEEN 1-2 WEEKS SURGICAL FOLLOW UP INDICATED ON THE DISCHARGE INSTRUCTIONS TRANSPORTATION FAMILY
--- NOTE | 2020-03-14 10:13 | P.DS_ITS ---
DS: Providers Provider Date of admission: 03/08/20 16:54 Primary care physician: Ree Cheatham MD Consults: 03/08/20 16:57 Consult to General Surgery Stat Consulting Provider: Fadi Raymond Reason for consultation: Cholecysitis Has provider been notified: Yes 03/09/20 07:25 Consult to Gastroenterology Routine Consulting Provider: Sanju Clark Reason for consultation: elevated LFTs, dilated CBD DS: Diagnosis Discharge Diagnosis (1) S/P laparoscopic cholecystectomy: Status: Acute (2) Cholecystitis, acute with cholelithiasis: Status: Acute (3) Transaminitis: Status: Acute DS: Summary Hospital Course Hospital Course: Brief HPI: 44 year old female presenting with complaints of abdominal pain in the upper abdomen for several days. She was seen previously in the emergency department determined to have gallstones and has had several episodes of increased pain over the past week. The pain seems to be associated with nausea and vomiting. She denies fever, chills, diarrhea, or constipation. She presented to the emergency department today because of increased abdominal pain. Workup revealed elevated liver function test and WBC. Ultrasound of the abdomen revealed a thickened gallbladder wall with enlarged common bile duct not seen on the previous ultrasound. The patient was admitted to the surgical service for further management of the transaminitis, cholecystitis. She was started on IV cefotan, IVF and kept NPO. The following day her RUQ pain persisted. Her WBC normalized but her LFTs worsened. A GI consult was obtained and MRCP ordered which showed two filling defects in the CBD. She was added onto the OR schedule for an ERCP the following day. An ERCP with sphincterotomy and stone extraction was performed by Dr. Clark on 03/10/20. She tolerated the procedure well. Her LFTs slowly improved following the procedure. Proceeding with a cholecystectomy to prevent recurrence of the choledocolithiasis was discussed during this stay with patient and she elected to proceed. On 03/13/20, a laparoscopic cholecystectomy was performed by Dr. Raymond without complication. A KYRA drain was placed intraoperatively. The patient tolerated the procedure well. The patient had an uncomplicated recovery course. On POD #1, she was comfortable and her pain was well controlled. Her abdomen was benign with appropriate post operative tenderness, dressings c/d/i. Her KYRA drainage was serous in nature and was removed. She was tolerating a solid diet and OOB without difficulty. She was discharged to home on 03/14/20 in stable condition. She is to f/u with Dr. Raymond in the office in 1 week. Status at Discharge Functional status at discharge: independent ambulation Overall status at discharge: patient is progressing back to baseline Time Spent with Patient Time attestation: Total time spent providing and/or coordinating discharge services: Quality: VTE Deep Vein Thrombosis/Pulmonary Embolism Present on Admission: No Physical Exam Vital Signs: Vital Signs: Vital Signs Temp Pulse Resp BP Pulse Ox 03/14/20 07:58 97.0 F 87 18 143/81 H 98 03/14/20 03:43 98.0 F 74 19 142/69 H 97 03/13/20 23:24 98.6 F 110 H 19 118/83 95 03/13/20 20:00 96.9 F 75 20 145/79 H 96 03/13/20 19:02 97.7 F 92 19 145/73 H 96 03/13/20 18:31 88 16 153/86 H 94 03/13/20 18:15 98.1 F 90 14 152/88 H 95 03/13/20 18:00 96 17 146/76 H 97 03/13/20 17:45 98 17 147/80 H 95 03/13/20 17:30 92 16 163/80 H 96 03/13/20 17:14 95 17 169/97 H 96 03/13/20 17:09 95 16 141/79 H 97 03/13/20 17:05 96 16 123/71 98 03/13/20 17:00 94 14 123/70 98 03/13/20 16:55 92 17 133/61 97 03/13/20 16:50 98.6 F 86 14 142/75 H 100 Body Mass Index 51.5 Const: General: comfortable, no acute distress, well developed and alert Orientation/consciousness: patient oriented x3 Eyes: Sclerae: sclerae normal Resp: Effort & Inspection: normal respiratory effort Cardio: Rate: regular rate GI: Inspection: No distended, Yes incision (dressings c/d/i) and Yes other (KYRA output serous) Palpation (GI): Soft to palpation, Tenderness to palpation present (GI) (mild, incisional), no guarding, not rigid and No Rebound tenderness present Percussion: Yes normal to percussion Skin: General skin exam: no rashes or lesions noted Neuro: General: patient oriented x3 Extrem: General: Yes no clubbing, cyanosis or edema DS: Data Data Completed and Pending Pending studies at discharge: Pending at discharge 03/13/20 16:23 Surgical [PTH] Routine Labs on day of discharge: Labs from last 24 hours 03/14/20 03/14/20 05:23 05:23 WBC 8.8 RBC 4.06 L Hgb 12.3 Hct 36.8 L MCV 90.6 MCH 30.3 MCHC 33.4 RDW 13.7 Plt Count 321 MPV 11.4 Immature Gran % (Auto) 0.3 Neut % (Auto) 74.2 H Lymph % (Auto) 19.2 L [place] % (Auto) 6.0 Eos % (Auto) 0.0 Baso % (Auto) 0.3 Lymph # (Auto) 1.7 [place] # (Auto) 0.5 Eos # (Auto) 0.0 Baso # (Auto) 0.0 Abs Immat Gran (auto) 0.03 Absolute Neuts (auto) 6.5 Absolute Nucleated RBC 0.000 Nucleated RBC % (auto) 0.0 Sodium 137 Potassium 3.9 Chloride 101 Carbon Dioxide 27 Anion Gap 13 BUN 6 L Creatinine 0.65 Estim Creat Clear Calc 114.5 Estimated GFR > 60 Random Glucose 118 H Calcium 8.4 Discharge Plan Discharge Patient Disposition: Home, Self-Care Referrals: Fadi Raymond MD [Physician] - 1 Week Ree Gray MD [Primary Care Provider] - Discharge Medications: New oxycodone 5 mg tablet 5 mg PO Q4H PRN (Reason: pain) Qty: 20 RF: 0 docusate sodium [Colace] 100 mg capsule 100 mg PO BID PRN (Reason: constipation) Qty: 30 RF: 0 Continued sertraline 25 mg tablet 25 mg PO DAILY RF: 0 hydroxyzine pamoate 25 mg capsule 25 mg PO BID PRN (Reason: anxiety) RF: 0 omeprazole 40 mg capsule,delayed release(DR/EC) 40 mg PO DAILY@0630 RF: 0 Discharge Orders: Discharge Order (Routine); Ordered 03/14/20 Ordered By: Latha Smith Diet: low fat, low cholesterol Activity on Discharge: No heavy lifting Discharge Date/Time: 03/14/20 12:21 Print Language: Setswana Activity Restrictions/Additional Instructions: If the incision area is tender, you may apply an ice pack for short intervals (No more than 20 minutes on, followed by at least 20 minutes off). Do not apply heat. Do not use creams, lotions, or topical antibiotics unless instructed to do so by your surgeon. These can cause infection or allergic reaction. Ok to shower. Remove clear dressings on 03/16/20. You have steri strips (small white cloth strips) on your incisions- these will fall off ~1 week. Call Your Doctor If: -Your temperature exceeds 101.5? F -You experience excessive pain or swelling -You have an unexpected reaction to medication -You have excessive bleeding -You experience continued vomiting/nausea -Your incision begins to separate -Your incision shows signs of infection such as increased redness, swelling, excessive pain, drainage (light blood or clear fluid is normal) or heat Visit Report Forms: Patient Portal Discharge page Care Plan Goals: Return to baseline health and activity. Health Concerns: Choledocolithiasis, acute cholecystitis, s/p ERCP and lap CCY Plan of Treatment: Discharge to home, f/u in office
--- NOTE | 2020-03-14 16:11 | HO.POSTANES ---
Post Anesthesia Evaluation Post Anesthesia Evaluation Vital Signs: Vital Signs Temp Pulse Resp BP Pulse Ox 03/14/20 07:58 97.0 F 87 18 143/81 H 98 Anesthesia: General Mental Status: Awake Pain Control: Satisfactory Nausea/Vomiting: None Hydration: Adequate Anesthesia-Related Issues: No Anes. Related Issues
== END 2020-03-14 12:21 | disposition home or self-care (01) | DRG 263 ==
LOC: HO.ED 17:14 → HO.S3 17:28
PROVIDERS: Internal Medicine Gastroenterology; Physician Assistant; Physician Assistant Surgical; Admitting Provider Surgery; Emergency Provider Emergency Medicine; PCP Internal Medicine; Visit Provider Surgery
PROC: 0FC98ZZ Extirpation of Matter from Common Bile Duct, Via Natural or Artificial Opening Endoscopic (ICD-10-PCS; CPT 43260; principal; 2020-03-10 13:00)
PROC: 0FT44ZZ Resection of Gallbladder, Percutaneous Endoscopic Approach (ICD-10-PCS; CPT 47562; principal; 2020-03-13 14:00)
DX: K80.63 Calculus of gallbladder and bile duct with acute cholecystitis with obstruction (principal); Z68.43 Body mass index [BMI] 50.0-59.9, adult; E66.9 Obesity, unspecified; Z88.0 Allergy status to penicillin; Z79.899 Other long term (current) drug therapy
CPT/HCPCS: 36415; 74181; 76705; 80048; 80053; 80076; 81001; 83690; 84484; 84702; 85025; 85027; 85610; 85730; 87086; 88304; 93005; 96374; 99231; 99232; 99284; 99285; C1769; J1100; J2250; J2270; J2405; J3010; Q9967

== ENCOUNTER → 2020-03-21 10:29 | Outpatient (BNVA) | payer OTHER, SELFPAY | PROVIDERS: PCP Internal Medicine; Referring Provider Internal Medicine; Visit Provider Surgery | DX: Z48.815 Encounter for surgical aftercare following surgery on the digestive system (principal); K59.00 Constipation, unspecified | CPT/HCPCS: 99212 ==

== ENCOUNTER 2020-06-09 09:55 | Outpatient (REF) | payer MEDICAID, SELFPAY | END 2020-06-09 09:56 | disposition home or self-care (01) | LOC: HO.LAB 09:55 | PROVIDERS: Visit Provider Internal Medicine | DX: Z20.822 Contact with and (suspected) exposure to COVID-19 (principal) | CPT/HCPCS: 36415; C9803; U0003 ==

== ENCOUNTER 2020-09-21 07:41 | Outpatient (REF) | payer MEDICAID, SELFPAY | END 2020-09-21 07:42 | disposition home or self-care (01) | LOC: HO.LAB 07:41 | PROVIDERS: Visit Provider Internal Medicine | DX: Z20.822 Contact with and (suspected) exposure to COVID-19 (principal) | CPT/HCPCS: C9803; U0003; U0005 ==

== ENCOUNTER 2020-10-24 13:51 | Outpatient (REF) | payer MEDICAID, SELFPAY | END 2020-10-24 13:52 | disposition home or self-care (01) | LOC: HO.LAB 13:51 | PROVIDERS: Visit Provider Internal Medicine | DX: Z20.822 Contact with and (suspected) exposure to COVID-19 (principal) | CPT/HCPCS: C9803; U0003; U0005 ==

== ENCOUNTER 2021-02-05 10:44 | Emergency (ER) | payer MEDICAID, SELFPAY ==
--- NOTE | ~2021-02-05 | XR_ITS ---
EXAMINATION: XR CHEST CLINICAL INFORMATION: Cough. COMPARISON: None TECHNIQUE: 2 views of the chest were obtained. FINDINGS: The lungs are well-expanded and clear of acute process. The heart size and pulmonary vascularity is normal. There is mild spondylosis dorsal spine. No lytic process. XR/XR chest 2V IMPRESSION: Unremarkable chest exam.
[2021-02-05 11:07] VITALS: BP 173/78; PULSE 85; RESP 16; TEMP 37.1; O2SAT 100; BMI 46.8
[2021-02-05 11:41] LABS: COVID-19 Test Negative (Negative); IDNOW Serial# 08D9AD1C
--- NOTE | 2021-02-05 13:00 | ED.URI ---
HPI - URI/Sore Throat General Chief Complaint: Upper Respiratory Symptoms Stated Complaint: cough, sore throat Time Seen by Provider: 02/05/21 12:54 Source: patient Mode of arrival: ambulatory Limitations: language barrier (Citizen [place]-speaking) History of Present Illness HPI Narrative: 45-year-old female presenting to the ED with complaints of 1 week of nasal congestion/rhinorrhea, sinus pressure, itchiness to her throat and a cough with clear/yellow/white color sputum worse today. Reports that she was seen at another ER was prescribed a nasal spray and mild symptomatic relief. Denies any measured fevers, dizziness, headaches, neck pain/stiffness, chest pain or shortness of breath, dyspnea on exertion, orthopnea, nausea/vomiting/diarrhea, abdominal pain, constipation, recent travel or sick contacts, rashes or any other symptoms complaints or concerns at this time. MD elicited complaint: cough, sore throat, rhinorrhea, nasal congestion and sinus pain Onset (ago): day(s) (For the past few days worse today) Consistency: constant and progressively worsening Severity: moderate Description of mucous: clear, watery, yellow and other (White) Able to tolerate fluids by mouth: Yes Exacerbating factors: swallowing, changing head position and leaning forward Relieving factors: nothing Associated symptoms: rhinorrhea, nasal congestion, sore throat and cough Treatments prior to arrival: other (Nasal spray) Related Data Home Medications Medication Instructions Recorded Confirmed hydroxyzine pamoate 25 mg capsule 25 mg PO BID PRN 03/08/20 03/21/20 omeprazole 40 mg capsule,delayed 40 mg PO DAILY@0630 03/08/20 03/21/20 release sertraline 25 mg tablet 25 mg PO DAILY 03/08/20 03/21/20 Previous Rx's Medication Instructions Recorded docusate sodium 100 mg capsule 100 mg PO BID PRN #30 cap 03/14/20 (Colace) oxycodone 5 mg tablet 5 mg PO Q4H PRN #20 tab 03/14/20 docusate sodium 100 mg capsule 100 mg PO DAILY #30 cap 03/21/20 (Colace) acetaminophen 500 mg tablet 500 mg PO Q6H PRN 30 Days #120 tab 10/28/20 albuterol sulfate 90 mcg/actuation 1 inh INHALATION QID PRN #8.5 g 02/05/21 aerosol inhaler dexamethasone 6 mg tablet 6 mg PO ONCE #1 tab 02/05/21 (Decadron) doxycycline monohydrate 100 mg 100 mg PO BID 10 Days #20 cap 02/05/21 capsule loratadine 10 mg tablet (Claritin) 10 mg PO DAILY PRN #10 tab 02/05/21 Allergies Allergy/AdvReac Type Severity Reaction Status Date / Time amoxicillin Allergy Unknown rash Verified 04/28/20 07:44 Review of Systems Review of Systems: Constitutional : No Fever, No Chills, No Night Sweats, No Fatigue, No Malaise ENT/Mouth : Positive nasal congestion/sinus plane/sore throat/rhinorrhea, No Hearing loss, No Ear Pain, No Hoarseness, No Swallowing Difficulty Eyes: No Eye Pain, No Swelling, No Redness, No Foreign Body, No Discharge, No Vision Changes Cardiovascular : No Chest Pain, No SOB, No Dyspnea on Exertion, No Orthopnea, No Edema, No Palpitations Respiratory : Positive Cough, No Sputum, No Wheezing, No Smoke Exposure, No Dyspnea Gastrointestinal : No Nausea, No Vomiting, No Diarrhea, No Constipation, No abdominal Pain, No Hematochezia, No Melena Genitourinary : no irregular bleeding, No Dysuria, No Urinary Frequency, No Hematuria, No Urinary Incontinence, No Urgency, No Flank Pain, No Urinary Flow Changes, No Hesitancy Musculoskeletal : No joint pain, No Myalgias, No Joint Swelling Skin : No Skin Lesions, No rash Neuro : No Weakness, No Numbness, No Paresthesias, No Loss of Consciousness, No Dizziness, No Headache Psych : No Anxiety/Panic, No Depression, No SI/HI/AH/VH, No Social Issues, Heme/Lymph: No Bruising, No Bleeding,No Lymphadenopathy Endocrine : No Polyuria, No Polydipsia, No Temperature Intolerance Yes all other systems are reviewed and are negative [facility] Past Medical History Attestation statement: The following information was validated with the patient. Medical History Choledocholithiasis Hearing loss Surgical History History of surgery S/P laparoscopic cholecystectomy Family History Family History Father Localized cancer of lung Liver cancer Mother Diabetes Hypertension Social History Social History Household Members: Spouse Housing: Condominium Do you presently have visiting nurse or other home services: No Alcohol intake: never Advance Directives: No Advance Directives Information Provided: No service: No Current occupational status: unemployed Physical Exam Vital Signs: Vital Signs: Last Vital Signs Temp 98.7 F 02/05/21 11:07 Pulse 85 02/05/21 11:07 Resp 16 02/05/21 11:07 BP 173/78 H 02/05/21 11:07 Pulse Ox 100 02/05/21 11:07 Body Mass Index 46.8 vital signs have been reviewed as normal and appeared to be correct. Blood pressure hypertensive 173/78. Heart rate normal. Respiration rate normal. Temperature normal. Oxygen saturation normal. Appearance: Alert. Oriented X3. No acute distress. Head: Normal external exam. Normocephalic. Atraumatic. Eyes: PERRLA. EOMI. Conjunctiva and sclera normal. Eyelids normal. ENT: Left tympanic membrane erythematous with loss of landmarks and decreased light reflex consistent with otitis media. Bilateral EAC normal. Right TM Normal. Pharynx normal. Uvula midline. Moist mucous membranes. No trismus noted. No drooling noted. No muffled voice noted. Neck: Normal inspection. Neck supple. FROM. No adenopathy. Thyroid Normal. No meningeal signs. No neck mass noted. CVS: Normal heart rate and rhythm. Heart sound normal. Pulses normal throughout. No murmurs/rales/gallops. Respiratory: No respiratory distress. Painless inspiration. Breath sounds normal. No wheezes/rales/rhonchi noted. Chest nontender. No accessory muscle usage noted or decreased air movement noted. Back: Full range of motion noted. No rashes/lesion/induration/fluctuance or signs of infection noted. Skin: Skin warm and dry. Normal skin color. Normal skin turgor. No rashes/lesions/lacerations noted. Extremities:Extremities exhibit normal range of motion. Extremities nontender. Neuro: Oriented X 3. No motor deficit. No sensory deficit. Reflexes normal. Normal steady gait. No focal neuro deficits noted. Course Course Course Narrative: 45-year-old female presenting to the ED with URI symptoms for the past week worse today. On exam patient has left otitis media and most likely a sinusitis. Patient negative for COVID. Will DC home with antibiotics and symptomatic treatment instructions return if any new or worsening symptoms to follow up with primary care provider. Patient understands agrees with this plan. MDM - URI/Sore Throat Medical Records Attestation: I reviewed the patient's medical records. Lab Data Attestation: I reviewed the patient's lab results. Labs: Lab Results 02/05/21 Range/Units 11:13 COVID-19 ([place]) Negative (Negative) COVID-19 Clin Com See Note Discharge Plan Discharge Clinical Impression: Upper respiratory infection, Otitis media, Sinusitis Patient Disposition: Home, Self-Care Instructions: Sinusitis (ED), Ear Infection (ED) Prescriptions: New doxycycline monohydrate 100 mg capsule 100 mg PO BID 10 Days Qty: 20 RF: 0 albuterol sulfate 90 mcg/actuation HFA aerosol inhaler 1 inh inhalation QID PRN (Reason: shortness of breath or wheezing) Qty: 8.5 RF: 0 loratadine [Claritin] 10 mg tablet 10 mg PO DAILY PRN (Reason: allergies) Qty: 10 RF: 0 dexamethasone [Decadron] 6 mg tablet 6 mg PO ONCE Qty: 1 RF: 0 No Action acetaminophen 500 mg tablet 500 mg PO Q6H PRN (Reason: fever) 30 Days Qty: 120 RF: 6 sertraline 25 mg tablet 25 mg PO DAILY RF: 0 hydroxyzine pamoate 25 mg capsule 25 mg PO BID PRN (Reason: anxiety) RF: 0 omeprazole 40 mg capsule,delayed release(DR/EC) 40 mg PO DAILY@0630 RF: 0 oxycodone 5 mg tablet 5 mg PO Q4H PRN (Reason: pain) Qty: 20 RF: 0 docusate sodium [Colace] 100 mg capsule 100 mg PO BID PRN (Reason: constipation) Qty: 30 RF: 0 docusate sodium [Colace] 100 mg capsule 100 mg PO DAILY Qty: 30 RF: 0 Referrals: Letitia Turner [Primary Care Provider] - 2 days Stand Alone Forms: Work/School Release Print Language: Citizen [place]
== END 2021-02-05 13:21 | disposition home or self-care (01) ==
PROVIDERS: Emergency Provider Emergency Medicine Emergency Medical Services; PCP Nurse Practitioner
DX: J06.9 Acute upper respiratory infection, unspecified (principal); H66.93 Otitis media, unspecified, bilateral; R05 Cough; J32.9 Chronic sinusitis, unspecified; Z20.822 Contact with and (suspected) exposure to COVID-19; Z79.899 Other long term (current) drug therapy
CPT/HCPCS: 36415; 71046; 87635; 99283

== ENCOUNTER 2021-10-02 12:23 | Outpatient (REF) | payer MEDICAID, SELFPAY ==
[2021-10-02 13:18] LABS: COVID-19 Test Negative (Negative)
== END 2021-10-02 12:24 | disposition home or self-care (01) ==
LOC: HO.LAB 12:23
PROVIDERS: PCP Nurse Practitioner; Visit Provider Internal Medicine
DX: Z20.822 Contact with and (suspected) exposure to COVID-19 (principal)
CPT/HCPCS: 87635; C9803

== ENCOUNTER 2021-10-09 13:07 | Outpatient (REF) | payer MEDICAID, SELFPAY ==
[2021-10-09 13:53] LABS: IDNOW Serial# 08D9AD1C
[2021-10-09 13:54] LABS: COVID-19 Test Negative (Negative)
== END 2021-10-09 13:08 | disposition home or self-care (01) ==
LOC: HO.LAB 13:07
PROVIDERS: Visit Provider Internal Medicine
DX: Z20.822 Contact with and (suspected) exposure to COVID-19 (principal)
CPT/HCPCS: 87635; C9803

== ENCOUNTER 2022-11-22 13:56 | Outpatient (REF) | payer MEDICAID, SELFPAY ==
--- NOTE | ~2022-11-22 | XR_ITS ---
EXAMINATION: XR LUMBOSACRAL SPINE CLINICAL INFORMATION: Reason for Exam M47.816 - Spondylosis without myelopathy or radiculopathy, lumbar region COMPARISON: Lumbar spine radiographs 01/12/2018 TECHNIQUE: 7 views of the lumbar spine FINDINGS: 4 nonrib-bearing lumbar-type vertebral bodies with the last well-formed disc space L4-L5 for the purposes of numbering. There are diminutive T12 ribs. Vertebral body heights are maintained. Alignment is maintained. No instability on flexion extension views. No pars defects. Mild multilevel degenerative disc disease with loss of disc space height and anterior disc osteophyte complexes and facet arthropathy. Right upper quadrant cholecystectomy clips. XR/XR lumbar spine 6V w bending IMPRESSION: 1. 4 nonrib-bearing lumbar-type vertebral bodies with the last well-formed disc space L4-L5 for the purposes of numbering. There are diminutive T12 ribs. If intervention is being considered recommend total spine radiographs to ensure accurate numbering. 2. Mild multilevel degenerative disc disease with loss of disc space height and anterior disc osteophyte complexes and facet arthropathy.
== END 2022-11-22 13:57 | disposition home or self-care (01) ==
LOC: HO.XRAY 13:56
PROVIDERS: PCP Nurse Practitioner; Visit Provider Nurse Practitioner Family
DX: M47.816 Spondylosis without myelopathy or radiculopathy, lumbar region (principal); M54.16 Radiculopathy, lumbar region; M79.7 Fibromyalgia
CPT/HCPCS: 72114; 99202

== ENCOUNTER 2023-01-02 11:06 | Outpatient (REF) | payer MEDICAID, SELFPAY ==
[2023-01-02 13:12] LABS: MANUAL DIFF FLAG NO
[2023-01-02 13:52] LABS: Basophils Absolute Auto 0.1 X10*3/uL (0.0-0.2); Basophils Percent Auto 0.9 % (0-2); Eosinophils Absolute Auto 0.2 X10*3/uL (0.0-0.4); Eosinophils Percent Auto 1.7 % (0-4); Hematocrit 39.1 % (37.0-47.0); Hemoglobin 12.4 g/dl (12.0-16.0); Imm Gran Abs Auto 0.02 X10*3/uL (0.00-0.03); Imm Gran Pct Auto 0.2 % (0.0-0.4); Lymphocytes Absolute Auto 3.6 X10*3/uL (1.2-4.9); Lymphocytes Percent Auto 39.1 % (20-40); Mean Corpuscular HGB Conc 31.7 g/dl (31.0-35.0); Mean Corpuscular Hemoglobin 29.3 pg (27.0-33.0); Mean Corpuscular Volume 92.4 fL (80.0-98.0); Mean Platelet Volume 10.9 fL (9.4-12.3); Monocytes Absolute Auto 0.5 X10*3/uL (0.1-1.2); Monocytes Percent Auto 5.6 % (2-11); Neutrophils Absolute Auto 4.9 x10*3/uL (2.0-8.3); Neutrophils Percent Auto 52.5 % (45-73); Platelet Count 368 X10*3/uL (160-400); Red Blood Count 4.23 X10*6/uL (4.20-5.50); Red Cell Distribution Width 13.4 % (11.0-16.0); White Blood Count 9.2 X10*3/uL (4.8-10.8)
== END 2023-01-02 11:07 | disposition home or self-care (01) ==
LOC: HO.HHCL 11:06
PROVIDERS: Visit Provider Nurse Practitioner Primary Care
DX: R42 Dizziness and giddiness (principal)
CPT/HCPCS: 36415; 85025

== ENCOUNTER 2023-01-17 09:12 | Outpatient (REF) | payer MEDICAID, SELFPAY ==
--- NOTE | ~2023-01-17 | US_ITS ---
EXAMINATION: US ABDOMEN COMPLETE CLINICAL INFORMATION: Abdominal pain. COMPARISON: MRI abdomen 03/09/2020. Ultrasound abdomen limited 03/08/2020 and 03/03/2020. CT abdomen and pelvis 07/01/2018. TECHNIQUE: Real-time imaging of the abdominal viscera. Technically limited study secondary to body habitus and patient discomfort. FINDINGS: PANCREAS: Portions of the pancreas are obscured by bowel gas. The well-visualized portions of the pancreas are within normal limits. ABDOMINAL AORTA: The visualized portions are unremarkable. INFERIOR VENA CAVA: Visualized portions are normal. LIVER: Normal. The liver is normal in size. The liver contour is normal. Parenchymal echogenicity is normal. No focal hepatic lesion. There is no intrahepatic biliary duct dilatation seen. GALLBLADDER: Surgically absent. COMMON BILE DUCT: Normal in caliber measuring 0.2 cm in diameter. RIGHT KIDNEY: Normal. No hydronephrosis. No renal calculi or focal parenchymal lesions. The kidney measures 11.0 cm in maximum dimension. LEFT KIDNEY: Normal. No hydronephrosis. No renal calculi or focal parenchymal lesions. The kidney measures 11.2 cm in maximum dimension. SPLEEN: Normal. The spleen measures 7.6 cm in maximum dimension. FREE FLUID: None. US/US abdomen complete IMPRESSION: 1. There is some limitation related to bowel gas and body habitus. 2. Prior cholecystectomy. 3. No biliary dilatation.
== END 2023-01-17 09:13 | disposition home or self-care (01) ==
LOC: HO.US 09:12
PROVIDERS: PCP Nurse Practitioner; Visit Provider Nurse Practitioner Primary Care
DX: R10.84 Generalized abdominal pain (principal)
CPT/HCPCS: 76700

== ENCOUNTER 2023-03-31 19:11 | Outpatient (REF) | payer MEDICAID, SELFPAY ==
[2023-04-01 08:11] LABS: Influenza A PCR NEGATIVE (Negative); Influenza B PCR NEGATIVE (Negative); Resp Syncy Virus RNA Qual PCR NEGATIVE (Negative); SARS COV2 PCR INHOUSE NEGATIVE (Negative)
== END 2023-03-31 19:12 | disposition home or self-care (01) ==
LOC: HO.HHCLNP 19:11
PROVIDERS: Visit Provider Internal Medicine
DX: R06.2 Wheezing (principal); Z11.52 Encounter for screening for COVID-19
CPT/HCPCS: 0241U; 87070

== ENCOUNTER 2023-06-05 21:15 | Emergency (ER) | payer MEDICAID, SELFPAY ==
--- NOTE | ~2023-06-05 | CT_ITS ---
EXAMINATION: CT HEAD WITHOUT CONTRAST CLINICAL INFORMATION: Headache. COMPARISON: 10/21/2019. TECHNIQUE: Contiguous axial imaging was performed from the skull base to vertex without intravenous administration of contrast. This CT examination was performed using dose optimization techniques as appropriate, variously including the following: *Automated exposure control *Adjustment of mA and/or kV according to patient size (this includes techniques or standardized protocols for targeted exams where dose is matched to indication/reason for exam; i.e. extremities or head) *Use of iterative reconstruction technique DLP: 811 mGy-cm FINDINGS: The lateral, third and fourth ventricles are normally outlined. The cortical sulci and basal cisterns are normally outlined as well. There is no acute territorial defect, hemorrhage or midline shift. The extra-axial spaces are unremarkable. Calvarium: Intact. Maxillofacial sinuses and mastoids: There is mild left inferior mastoid opacification similar to prior. The right mastoid and visualized maxillofacial sinuses are clear. CT/CT head/brain wo IV con IMPRESSION: No acute intracranial pathology.
[2023-06-05 21:17] VITALS: BP 142/86; BP 166/79; PULSE 77; PULSE 78; RESP 16; TEMP 36.6; O2SAT 97; O2SAT 99; BMI 52.4
--- NOTE | 2023-06-05 21:31 | ECG_ITS ---
Test Reason : chest pain Blood Pressure : / mmHG Vent. Rate : 079 BPM Atrial Rate : 079 BPM P-R Int : 136 ms QRS Dur : 084 ms QT Int : 394 ms P-R-T Axes : 040 016 008 degrees QTc Int : 451 ms Normal sinus rhythm Normal ECG When compared with ECG of 08-MAR-2020 13:14, No significant change was found Referred By: Generic ED Physician Electronically Signed By:ALLISON KLINE
[2023-06-05 22:04] LABS: MANUAL DIFF FLAG NO
[2023-06-05 22:05] LABS: Basophils Percent Auto 0.4 % (0-2); Eosinophils Absolute Auto 0.1 X10*3/uL (0.0-0.4); Eosinophils Percent Auto 0.5 % (0-4); Hemoglobin 13.4 g/dl (12.0-16.0); Imm Gran Abs Auto 0.03 X10*3/uL (0.00-0.03); Imm Gran Pct Auto 0.3 % (0.0-0.4); Lymphocytes Percent Auto 26.6 % (20-40); Mean Corpuscular HGB Conc 32.7 g/dl (31.0-35.0); Mean Corpuscular Hemoglobin 29.3 pg (27.0-33.0); Mean Corpuscular Volume 89.5 fL (80.0-98.0); Mean Platelet Volume 9.8 fL (9.4-12.3); Monocytes Absolute Auto 0.5 X10*3/uL (0.1-1.2); Monocytes Percent Auto 4.2 % (2-11); Neutrophils Absolute Auto 7.6 x10*3/uL (2.0-8.3); Platelet Count 348 X10*3/uL (160-400); Red Blood Count 4.58 X10*6/uL (4.20-5.50); Red Cell Distribution Width 13.5 % (11.0-16.0); White Blood Count 11.2 X10*3/uL (4.8-10.8)
[2023-06-05 22:24] LABS: Alanine Aminotransferase 11 U/L (0-31); Alkaline Phosphatase 95 U/L (39-117); Anion Gap 16 (12-20); Aspartate Amino Transferase 11 U/L (5-31); Bilirubin Direct 0.1 mg/dL (0.0-0.5); Bilirubin Total 0.4 mg/dL (0.0-1.0); Blood Urea Nitrogen 9 mg/dL (9-16); Calcium 9.6 mg/dL (8.4-10.2); Carbon Dioxide 26 mmol/L (22-29); Chloride 100 mmol/L (96-108); Creatinine Clr Calc Pharmacy 115.6; Estimated Glomerular Filt Rate > 60; Glucose Random 91 mg/dL (60-115); Lipase 9 U/L (8-78); Potassium 3.7 mmol/L (3.3-5.1); Sodium 138 mmol/L (135-145); Total Protein 7.3 g/dL (6.5-8.0)
[2023-06-05 22:31] LABS: Troponin-I High Sensitivity < 2.7 ng/L (<3.5-17.0)
[2023-06-05 23:55] VITALS: BP 159/72; PULSE 79; RESP 16; TEMP 37; O2SAT 98
--- NOTE | 2023-06-06 02:05 | ED.GENADULT ---
HPI - General Adult General Chief complaint: General Medical Stated complaint: Nausea and vomiting Time Seen by Provider: 06/06/23 02:05 History of Present Illness HPI narrative: Patient is a 47-year-old woman who says that she woke up this morning with a headache that was very severe headache. It has been associated with nausea, vomiting, and photophobia. At 1st the patient seemed to imply that this was an and the worst headache of her life. Later however her arrived and said that a couple of years ago she had a head injury and since then she has been having intermittent headaches. Additionally the patient said that she had in fact been prescribed medications for headaches that she used for a while and had been effective but then she stopped taking the medications because she was no longer having headaches. Related Data Home Medications Medication Instructions Recorded Confirmed duloxetine 30 mg capsule,delayed 30 mg PO DAILY 11/22/22 release (Cymbalta) Previous Rx's Medication Instructions Recorded acetaminophen 500 mg tablet 500 mg PO Q6H PRN fever 30 days 10/28/20 #120 tabs albuterol sulfate 90 mcg/actuation 1 inh inhalation QID PRN shortness 02/05/21 aerosol inhaler of breath or wheezing #8.5 grams Allergies Allergy/AdvReac Type Severity Reaction Status Date / Time amoxicillin Allergy Unknown rash Verified 06/05/23 21:27 Review of Systems Review of Systems: Yes all other systems are reviewed and are negative PMFSH Past Medical History Onset Date is defined in the Problem List Problems that require an onset date and time if occurred within 24 hrs of arrival to the ED Aortic Dissection and Rupture; Neurologic impairment; Cardiopulmonary Arrest; Endotracheal Intubation; Insertion or Replacement of Mechanical Circulatory Assist Device Medical History Choledocholithiasis Hearing loss Surgical History History of surgery S/P laparoscopic cholecystectomy Family History Family History Father Localized cancer of lung Liver cancer Mother Diabetes Hypertension Social History Social History Household Members: Spouse Housing: Condominium Do you presently have visiting nurse or other home services: No Alcohol intake: never Comment: pt reported feeling dizzy during day at random times, bed alarm initiated Smoked in Last 30 Days: No Use of substances other than those prescribed or required for medical reasons: No Advance Directives: No Advance Directives Information Provided: No Patient : No service: No Current occupational status: unemployed Physical Exam ED Vital Signs: Vital Signs - 24 hr 06/05/23 21:17 06/05/23 23:55 Temperature 97.9 F 98.6 F Pulse Rate 77 79 Respiratory Rate 16 16 Blood Pressure 166/79 H 159/72 H Pulse Oximetry 97 98 Oxygen Delivery Method Room Air Room Air BMI result Body Mass Index 52.4 Const Other: The patient was sleeping but awoke easily with stimulation to a normal mental status. She did not appear obviously ill or toxic. HENMT Other: Face is symmetrical. Mucous membranes moist. Pharynx normal. Eyes Other: The round, equal, and reactive to light, extraocular movements intact. Neck Other: Neck is supple. Touches her chin to her chest completely easily without apparent discomfort Resp Effort & Inspection: normal respiratory effort Auscultation: clear to auscultation bilaterally Cardio Rate: regular rate Rhythm: regular rhythm Heart sounds: S1 normal heart sound present and S2 normal heart sound present GI Other: The abdomen is soft and nontender Skin Other: The skin is dry and unremarkable. Neuro Other: Awake, alert, pleasant, cooperative. Her demeanor is nontoxic. Pupils are round equal and reactive, extraocular movements intact, face is symmetrical, speech is clear, neck is supple, moves extremities symmetrically, grossly neurologically intact. Extrem Other: No calf swelling or tenderness Medications Administered Discontinued Medications Generic Name Dose Route Start Last Admin Trade Name Laura PRN Reason Stop Dose Admin Ketorolac Tromethamine 30 mg 06/06/23 02:20 06/06/23 02:52 Ketorolac Tromethamine 30 Mg/Ml Vial IM 06/06/23 02:21 30 mg ONCE ONE Administration Prochlorperazine Edisylate 10 mg 06/06/23 02:20 06/06/23 02:52 Prochlorperazine Edisylate 10 Mg/2 Ml Vial IM 06/06/23 02:21 10 mg ONCE ONE Administration Medical Decision Making Medical Decision Making MDM Narrative: The patient old woman who presents with a complaint of headache. She describes photophobia and nausea. My initial impression was that the patient probably had a migraine headache but when I interviewed her at 1st she seemed to imply that this headache was a novel headache. It was at that point I ordered a CT scan of the head. Later she told me that she had had a similar headache 2 weeks ago. The patient's then told me that in fact she had been having headaches for the last 2 years following a head injury and that the patient has previously been prescribed medications for headaches. The head CT is negative. My suspicion for subarachnoid hemorrhage or other acutely dangerous process in this case is very low and I do not think she requires a spinal tap. She was treated with ketorolac and prochlorperazine with some improvement. She was discharged to follow up with her regular doctor. She should return if worse. Lab Data 06/05/23 22:00 06/05/23 22:00 Labs: Lab Results 06/05/23 Range/Units 22:00 WBC 11.2 H (4.8-10.8) X10*3/uL RBC 4.58 (4.20-5.50) X10*6/uL Hgb 13.4 (12.0-16.0) g/dl Hct 41.0 (37.0-47.0) % MCV 89.5 (80.0-98.0) fL MCH 29.3 (27.0-33.0) pg MCHC 32.7 (31.0-35.0) g/dl RDW 13.5 (11.0-16.0) % Plt Count 348 (160-400) X10*3/uL MPV 9.8 (9.4-12.3) fL Immature Gran % (Auto) 0.3 (0.0-0.4) % Neut % (Auto) 68.0 (45-73) % Lymph % (Auto) 26.6 (20-40) % Summers % (Auto) 4.2 (2-11) % Eos % (Auto) 0.5 (0-4) % Baso % (Auto) 0.4 (0-2) % Lymph # (Auto) 3.0 (1.2-4.9) X10*3/uL Summers # (Auto) 0.5 (0.1-1.2) X10*3/uL Eos # (Auto) 0.1 (0.0-0.4) X10*3/uL Baso # (Auto) 0.0 (0.0-0.2) X10*3/uL Abs Immat Gran (auto) 0.03 (0.00-0.03) X10*3/uL Absolute Neuts (auto) 7.6 (2.0-8.3) x10*3/uL Absolute Nucleated RBC 0.000 (0.0-0.012) X10*3/uL Nucleated RBC % (auto) 0.0 (0.0-0.2) /100WBC Sodium 138 (135-145) mmol/L Potassium 3.7 (3.3-5.1) mmol/L Chloride 100 (96-108) mmol/L Carbon Dioxide 26 (22-29) mmol/L Anion Gap 16 (12-20) BUN 9 (9-16) mg/dL Creatinine 0.63 (0.5-1.4) mg/dL Estim Creat Clear Calc 115.6 Estimated GFR > 60 Random Glucose 91 (60-115) mg/dL Calcium 9.6 D (8.4-10.2) mg/dL Total Bilirubin 0.4 (0.0-1.0) mg/dL Direct Bilirubin 0.1 (0.0-0.5) mg/dL AST 11 (5-31) U/L ALT 11 (0-31) U/L Alkaline Phosphatase 95 (39-117) U/L Troponin I High Sens < 2.7 (<3.5-17.0) ng/L Total Protein 7.3 (6.5-8.0) g/dL Albumin 4.0 (3.5-5.0) g/dL Lipase 9 (8-78) U/L Discharge Plan Discharge Clinical Impression: Headache Patient Disposition: Home, Self-Care Additional Instructions: I think that your headache is probably a migraine headache. Please rest tonight and get some sleep. Continue your regular medications. Please follow-up soon with your regular doctor to discuss this further. Return to the emergency room if you are significantly worse Prescriptions: No Action acetaminophen 500 mg tablet 500 mg PO Q6H PRN (Reason: fever) 30 Days Qty: 120 6RF albuterol sulfate 90 mcg/actuation HFA aerosol inhaler 1 inh inhalation QID PRN (Reason: shortness of breath or wheezing) Qty: 8.5 0RF duloxetine [Cymbalta] 30 mg capsule,delayed release(DR/EC) 30 mg PO DAILY Referrals: [facility] [Primary Care Provider] - (Headache) Interventions: ED Discharge Assessment Last Done: 06/06/23 03:56 Discharge Date/Time: 06/06/23 03:57
[2023-06-06] MEDS: Prochlorperazine Edisylate 10 MG/2 ML VIAL IM (02:52)
[2023-06-06] MEDS: Ketorolac Tromethamine 30 MG/ML VIAL IM (02:52)
== END 2023-06-06 03:57 | disposition home or self-care (01) ==
PROVIDERS: Emergency Provider Emergency Medicine
DX: R11.2 Nausea with vomiting, unspecified (principal); R51.9 Headache, unspecified; R07.89 Other chest pain; Z79.899 Other long term (current) drug therapy
CPT/HCPCS: 36415; 70450; 80048; 80076; 83690; 84484; 85025; 93005; 96372; 99284; 99285; J0737; J1885

== ENCOUNTER → 2023-06-05 21:31 | Outpatient (BNV) | payer MEDICAID, SELFPAY | PROVIDERS: Emergency Provider Emergency Medicine; Visit Provider Internal Medicine | DX: R07.9 Chest pain, unspecified (principal) | CPT/HCPCS: 93010 ==

== ENCOUNTER 2023-06-19 15:07 | Outpatient (REF) | payer MEDICAID, SELFPAY ==
[2023-06-19 16:55] LABS: Estimated Average Glucose 108 mg/dL; Hemoglobin A1c % 5.4 % (<6.0)
== END 2023-06-19 15:08 | disposition home or self-care (01) ==
LOC: HO.HHCL 15:07
PROVIDERS: Visit Provider Nurse Practitioner Primary Care
DX: R35.89 Other polyuria (principal)
CPT/HCPCS: 36415; 83036

== ENCOUNTER 2023-09-12 11:49 | Outpatient (REF) | payer MEDICAID, SELFPAY ==
--- NOTE | ~2023-09-12 | XR_ITS ---
EXAMINATION: XR SHOULDER, LEFT CLINICAL INFORMATION: Pain COMPARISON: None available. TECHNIQUE: AP external rotation, Grashey, scapular Y, and axillary views of the left shoulder. FINDINGS: Bone alignment is normal. No fracture or dislocation. Normal glenohumeral joint. Arthritis at the acromioclavicular joint. Soft tissues are unremarkable. XR/XR shoulder LT min 2V IMPRESSION: Arthritis at the acromioclavicular joint.
== END 2023-09-12 11:50 | disposition home or self-care (01) ==
LOC: HO.HHCX 11:49
PROVIDERS: Visit Provider Emergency Medicine
DX: M25.512 Pain in left shoulder (principal)
CPT/HCPCS: 73030

== ENCOUNTER 2023-10-02 20:09 | Outpatient (REF) | payer MEDICAID, SELFPAY ==
[2023-10-10 03:14] LABS: HPV mRNA E6/E7 rflx Not Detected (Not Detected)
== END 2023-10-02 20:10 | disposition home or self-care (01) ==
LOC: HO.HHCLNP 20:09
PROVIDERS: Visit Provider Advanced Practice Midwife
DX: Z12.4 Encounter for screening for malignant neoplasm of cervix (principal); Z11.51 Encounter for screening for human papillomavirus (HPV)
CPT/HCPCS: 87624; 88142

== ENCOUNTER → 2023-10-08 14:05 | Outpatient (BNVA) | payer MEDICAID, SELFPAY | PROVIDERS: PCP Nurse Practitioner Primary Care; Visit Provider Orthopaedic Surgery ==

== ENCOUNTER 2023-10-09 14:22 | Outpatient (REF) | payer MEDICAID, SELFPAY | END 2023-10-09 14:23 | disposition home or self-care (01) | LOC: HO.MAMMO 14:22 | PROVIDERS: PCP Nurse Practitioner Primary Care; Visit Provider Nurse Practitioner Primary Care | DX: Z12.31 Encounter for screening mammogram for malignant neoplasm of breast (principal) | CPT/HCPCS: 77063; 77067 ==

== ENCOUNTER → 2023-10-09 15:00 | Outpatient (BNV) | payer MEDICAID, SELFPAY | PROVIDERS: PCP Nurse Practitioner Primary Care; Visit Provider Radiology Diagnostic Radiology | DX: Z12.31 Encounter for screening mammogram for malignant neoplasm of breast (principal) | CPT/HCPCS: 77063; 77067 ==

== ENCOUNTER 2023-12-04 16:00 | Outpatient (RCR) | payer MEDICAID, SELFPAY | END 2024-01-08 10:22 | disposition home or self-care (01) | LOC: HO.PT 16:00 | PROVIDERS: PCP Nurse Practitioner Primary Care; Visit Provider Nurse Practitioner Primary Care | DX: M25.511 Pain in right shoulder (principal); M25.512 Pain in left shoulder; M54.42 Lumbago with sciatica, left side; G89.29 Other chronic pain | CPT/HCPCS: 97110; 97162; 97530 ==

== ENCOUNTER → 2024-02-13 13:03 | Outpatient (BNV) | payer MEDICAID, SELFPAY | PROVIDERS: PCP Nurse Practitioner Primary Care; Visit Provider Radiology Diagnostic Radiology | DX: M54.50 Low back pain, unspecified (principal) | CPT/HCPCS: 72148 ==

== ENCOUNTER 2024-02-13 13:12 | Outpatient (REF) | payer MEDICAID, SELFPAY ==
--- NOTE | ~2024-02-13 | MR_ITS ---
EXAMINATION: MR LUMBAR SPINE WITHOUT CONTRAST CLINICAL INFORMATION: Low back pain. Urinary incontinence. Bilateral lower extremity weakness and numbness. COMPARISON: No priors. Correlated to x-ray dated November 22, 2022. TECHNIQUE: MRI of the lumbar spine was obtained using routine sequences without contrast. FINDINGS: Last rib-bearing vertebra labeled T12. Bone marrow inhomogeneity. Multilevel marginal osteophyte formation and disc desiccation. Multilevel, Modic type II endplate changes, L3-4 to L5-S1. Superior endplate compression deformities representing 20% volume loss without STIR signal, T11. Subtle grade 1 retrolisthesis L5-S1. Conus medullaris ends at intervertebral disc L2-3 level with normal signal. T12-L1: Broad-based disc bulging. No compression upon elements. L1-2: Broad-based disc bulging. Facet joint hypertrophy. No compression upon neural elements. L2-3: Broad-based disc bulging. Facet joint hypertrophy. Bilateral neuroforamina narrowing, right greater than left. No compression upon the neural elements. L3-4: Broad-based disc bulging. Facet joint and ligamentum flavum hypertrophy. Reduced AP diameter of the thecal sac and neuroforamina. L4-5: Broad-based disc bulging. Facet joint hypertrophy. Bilateral neuroforamina stenosis encroaching the exiting nerve roots. Reduced AP diameter of the thecal sac. L5-S1: Broad-based disc bulging. Facet joint hypertrophy. Bilateral neuroforamina narrowing encroaching the exiting nerve roots. No prevertebral compartment hematoma, mass or fluid collection. MR/MR lumbar spine wo con IMPRESSION: Multilevel spondylosis more conspicuous at L4-5 and L5-S1 likely encroaching the exiting nerve roots. Subacute to old compression deformity at representing 20% volume loss, T11 vertebra. Electronically signed by: Amrik Barclay MD 03/16/2024 11:02 AM EDT
== END 2024-02-13 13:13 | disposition home or self-care (01) ==
LOC: HO.MRI 13:12
PROVIDERS: PCP Nurse Practitioner Primary Care; Visit Provider Nurse Practitioner Primary Care
DX: M54.42 Lumbago with sciatica, left side (principal); M54.41 Lumbago with sciatica, right side; G89.29 Other chronic pain; N39.46 Mixed incontinence
CPT/HCPCS: 72148

== ENCOUNTER 2024-08-10 11:52 | Outpatient (REF) | payer MEDICAID, SELFPAY ==
[2024-08-10 13:45] LABS: Estimated Average Glucose 108 mg/dL; Hemoglobin A1c % 5.4 % (<6.0)
[2024-08-10 13:54] LABS: Cholesterol 225 mg/dL (<200); HDL Cholesterol 42 mg/dL (>40); LDL Cholesterol Calculated 160 mg/dL (<100); Triglycerides 115 mg/dL (<150)
[2024-08-10 14:10] LABS: TSH reflex Free T4 1.18 uIU/mL (0.32-4.0)
== END 2024-08-10 11:53 | disposition home or self-care (01) ==
LOC: HO.HHCL 11:52
PROVIDERS: Visit Provider Nurse Practitioner Primary Care
DX: E66.01 Morbid (severe) obesity due to excess calories (principal); Z68.43 Body mass index [BMI] 50.0-59.9, adult
CPT/HCPCS: 36415; 80061; 83036; 84443

== ENCOUNTER 2024-11-12 14:11 | Outpatient (REF) | payer MEDICAID, SELFPAY ==
--- NOTE | ~2024-11-12 | US_ITS ---
EXAMINATION: US TRIPLEX LOWER EXTREMITY, LEFT CLINICAL INFORMATION: Left lower extremity pain, rule out DVT. COMPARISON: None available. TECHNIQUE: Color-flow triplex imaging with spectral analysis and compression Doppler were performed on the left lower extremity. FINDINGS: Respiratory variation, normal compression and augmented flow are noted throughout the left lower extremity. The visualized common femoral vein, superficial femoral vein, profunda femoral vein, popliteal vein and midcalf peroneal and posterior tibial venous segments show no evidence of deep venous thrombosis. There is no Turner's cyst. US/US venous duplex LE LT IMPRESSION: No evidence of deep venous thrombosis involving the left lower extremity. Electronically signed by: Lj Loving MD 11/12/2024 02:59 PM EDT
--- OUTSIDE RECORDS SUMMARY | 2024-11-12 14:39 | XMS_ITS | Encounter Summary ---
Author Organization [employer] Address [address] [place] [address] Care Team Providers Care Enlisted Aircrew/Aerial Observer/Gunner Name Role Phone Aarti Burroughs Primary Care Provider [phone] Encounter Details Date Type Department Care Team (Late Contact Info) Description 07/29/2022 Orders Only [facility] [address] [place] [phone] Daisy Conner LPN Social History Tobacco Use Types Packs/Day Years Used Date Smoking Tobacco: Never Passive Smoke Exposure: Never Alcohol Use Standard Drinks/Week Comments Never 0 (1 standard drink = 0.6 oz pur e alcohol) Comments Unknown Sex and Gender Information Value Date Recorded Sex Assigned at Female 03/18/2022 10:31 AM EDT Legal Sex Female 10:31 AM EDT Gender Identity Female 03/18/2022 10:31 AM EDT Sexual Orientation Straight 03/18/2022 10 :31 AM EDT documented as of this encounter Plan of Treatment Upcoming Encounters Date Type Department Care Team (Late Contact Info) Description 12/13/2024 11:00 AM EDT Office Visit [facility] [address] [place] [phone] Aarti Burroughs ANP [address] [place] [phone] documented as of this encounter Procedures Procedure Name Priority Date/Time Associated Diagnosis Comments HIGH SENSITIVITY TROPONIN I Routine 06/05/2023 10:00 PM EST CBC WITH AUTO DIFFERENTIAL Routine 06/05/2023 10:00 PM EST LIPASE Routine 06/05/2023 10:00 PM EST HEPATIC FUNCTION PANEL Routine 06/05/2023 10:00 PM EST BASIC METABOLIC PANEL Routine 06/05/2023 10:00 PM EST documented in this encounter Results * High Sensitivity Troponin I (06/05/2023 10:00 PM EST) [facility] TROPONIN I HIGH SENSITIVITY <2.7 <3.5 - 17.0 ng/L [facility] Comment:The Figueroa high sens itivity Troponin-I results should beused in conjunction with other diagnostic information suchas ECG, clinical observations and information, and patientsymptoms to aid in the diagnosis of MD. 06/05/2023 10:0 0 PM EST 06/05/2023 10:02 PM EST Generic External Data Provider LAB BLOOD ORDERAB LES Final Result Performing Organization Address [facility] Co de Phone Number [facility] [address] [place] [phone] * Lipase (06/05/2023 10:00 PM EST) [facility] Lipase 9 8 - 78 U/L [facility] 06/05/2023 10:0 0 PM EST 06/05/2023 10:02 PM EST Generic External Data Provider LAB BLOOD ORDERAB LES Final Result Performing Organization Address [facility] Co de Phone Number [facility] [address] [place] [phone] * Basic Metabolic Panel (06/05/2023 10:00 PM EST) [facility] Sodium 138 135 - 145 mmol/L [facility] Potassium 3.7 3.3 - 5.1 mmol/L [facility] Chloride 100 96 - 108 mmol/L [facility] Carbon Dioxide 26 22 - 29 mmol/L [facility] Anion Gap 16 12 - 20 [facility] Urea Nitrogen (BUN) 9 9 - 16 mg/dL [facility] Creatinine, Serum 0.63 0.5 - 1.4 mg/dL [facility] Creatinine Clr Calc Pharmacy 115.6 [facility] Comment:Provided height and weight: 144.78 cm,109.769 kg.eGFR (calculated from the MDRD study equation) and eCrCl(calculated from the Cockcroft-Gault equation) are based ondifferent parameters and may not yield comparable results.If eCrCl result is absurd, please check patient'sheight/weight. Estimated Glomerular Filt Rate >60 [facility] Comment:NOTE: For -Am erican individuals, multiply the result by 1.210.Chronic Kidney Disease: Estimated GFR < 60 mL/min/1.35v4Hcwnlh Kidney Disease: Estimated GFR < 15 mL/min/1.73m2 Glucose 91 60 - 115 mg/dL [facility] Calcium 9.6 8.4 - 10.2 mg/dL [facility] 06/05/2023 10:0 0 PM EST 06/05/2023 10:02 PM EST us Generic External Data Provider LAB BLOOD ORDERAB LES Final Result [facility] [address] [place] [phone] * Hepatic Function Panel (06/05/2023 10:00 PM EST) Bilirubin, Total 0.4 0.0 - 1.0 mg/dL [facility] Bilirubin, Direct 0.1 0.0 - 0.5 mg/dL [facility] Aspartate Amino Transferase 11 5 - 31 U/L [facility] Alanine Aminotransferase 11 0 - 31 U/L [facility] Total Protein 7.3 6.5 - 8.0 g/dL [facility] Albumin Level 4.0 3.5 - 5.0 g/dL [facility] Alkaline Phosphatase 95 39 - 117 U/L [facility] 06/05/2023 10:0 0 PM EST 06/05/2023 10:02 PM EST us Generic External Data Provider LAB BLOOD ORDERAB LES Final Result [facility] [address] [place] [phone] * (ABNORMAL) CBC auto differential (06/05/2023 10:00 PM EST) White Blood Count 11.2(H) 4.8 - 10.8 X10*3/uL [facility] Red Blood Count 4.58 4.20 - 5.50 X10*6/uL [facility] Hemoglobin 13.4 12.0 - 16.0 g/dl [facility] Hematocrit 41.0 37.0 - 47.0 % [facility] Mean Corpuscular Volume 89.5 80.0 - 98.0 fL [facility] Mean Corpuscular Hemoglobin 29.3 27.0 - 33.0 pg [facility] Mean Corpuscular HGB Conc 32.7 31.0 - 35.0 g/dl [facility] Red Cell Distribution Width 13.5 11.0 - 16.0 % [facility] Platelet Count 348 160 - 400 X10*3/uL [facility] Mean Platelet Volume 9.8 9.4 - 12.3 fL [facility] Neutrophils Percent Auto 68.0 45 - 73 % [facility] Imm Gran Pct Auto 0.3 0.0 - 0.4 % [facility] Lymphocytes Percent Auto 26.6 20 - 40 % [facility] Monocytes Percent Auto 4.2 2 - 11 % [facility] Eosinophils Percent Auto 0.5 0 - 4 % [facility] Basophils Percent Auto 0.4 0 - 2 % [facility] NRBC Pct Auto 0.0 0.0 - 0.2 /100WBC [facility] Neutrophils Absolute Auto 7.6 2.0 - 8.3 x10*3/uL [facility] Imm Gran Abs Auto 0.03 0.00 - 0.03 X10*3/uL [facility] Lymphocytes Absolute Auto 3.0 1.2 - 4.9 X10*3/uL [facility] Monocytes Absolute Auto 0.5 0.1 - 1.2 X10*3/uL [facility] Eosinophils Absolute Auto 0.1 0.0 - 0.4 X10*3/uL [facility] Basophils Absolute Auto 0.0 0.0 - 0.2 X10*3/uL [facility] NRBC Abs Auto 0.000 0.0 - 0.012 X10*3/uL [facility] 06/05/2023 10:0 0 PM EST 06/05/2023 10:02 PM EST us Generic External Data Provider LAB BLOOD ORDERAB LES Final Result Performing Organization Address City/State/[facility] Co de Phone Number [facility] [address] [place] [phone] documented in this encounter Visit Diagnoses Not on filedocumented in this encounter Care Teams Enlisted Aircrew/Aerial Observer/Gunner Relationship Specialty Start Date End Date Aarti Burroughs ANP [address] [place] [phone] PCP - General Family Medicine 01/09/22 Esperanza Thompson Labor ConciliatorSecond Grade Teacher 01/14/24 documented as of this encounter
== END 2024-11-12 14:12 | disposition home or self-care (01) ==
LOC: HO.US 14:11
PROVIDERS: Visit Provider Nurse Practitioner Primary Care
DX: M79.605 Pain in left leg (principal)
CPT/HCPCS: 93971

== ENCOUNTER → 2024-11-12 14:41 | Outpatient (BNV) | payer MEDICAID, SELFPAY | PROVIDERS: Visit Provider Radiology Diagnostic Radiology | DX: M79.662 Pain in left lower leg (principal) | CPT/HCPCS: 93971 ==